=== PATIENT | male | born 1970 | race Caucasian/White ===

== ENCOUNTER 2017-05-02 12:54 | Emergency (ER) | payer MEDICARE, MEDICAID ==
[2017-05-02] MEDS ORDERED: NS 0.9% 1000 ML* 1,000 ML IV SCH (14:30)
[2017-05-02 14:50] LABS: Hematocrit 44 % (42-52); Mean Corpuscular HGB Conc 35 g/dl (31-36); Mean Corpuscular Hemoglobin 35 pg (27-31); Mean Corpuscular Volume 100 fL (80-94); Mean Platelet Volume 8 um3 (7.4-10.4); Red Blood Count 4.36 10^6/ul (4.0-5.4); Red Cell Distribution Width 14 % (10.5-15); White Blood Count 7.6 10^3/ul (3.5-10.8)
[2017-05-02 15:03] LABS: Albumin 3.8 g/dL (3.2-5.2); BUN/Creatinine Ratio 25.6 (8-20); C Reactive Protein 3.35 mg/L (< 5.00); Calcium 9.5 mg/dL (8.6-10.3); EGFR African American 124.2 (>60); EGFR Non-African American 96.6 (>60); Globulin 4.7 g/dL (2-4); Potassium 4.2 mmol/L (3.5-5.0); Total Bilirubin 0.7 mg/dL (0.2-1.0); Total Protein 8.5 g/dL (6.4-8.9)
[2017-05-02 15:48] LABS: Urine Bilirubin Negative (Negative); Urine Glucose Negative (Negative); Urine Nitrite Negative (Negative)
[2017-05-02] MEDS ORDERED: Al Hydrox/Mg Hydrox/Simet LIQ* 30 ML UDC PO ONE (15:59)
[2017-05-02] MEDS ORDERED: Lidocaine 2% VISCOUS* 15 ML UDC PO ONE (15:59)
[2017-05-02 16:28] LABS: Troponin I 0.04 ng/mL (<0.04)
--- NOTE | 2017-05-02 16:40 | RAD ---
Indication: Epigastric pain. Cardiovascular disease with congestive heart failure. Chronic obstructive pulmonary disease. Comparison: January 13, 2017 Technique: Upright AP 1620 hours Report: Elevated lung volumes and both diffuse mild prominence of the interstitial markings and patchy rarefaction of the mid to upper lung zone interstitial markings. Diffuse mild to moderate prominence of the interstitial markings with subtle peripheral thickened interlobular septa. Negative for pleural effusion or pneumothorax. RIGHT atrial and RIGHT ventricular level pacemaker leads extend from the RIGHT chest wall pacemaker control unit. A solitary lead extending from the LEFT chest wall extends to the level of the RIGHT ventricle. Prosthetic aortic valve. Cardiomegaly. Prominent mildly ill-defined central pulmonary vasculature. IMPRESSION: The constellation of findings is most consistent with pulmonary vascular congestion and interstitial edema.
--- NOTE | 2017-05-02 18:06 | ED ---
Charmaine Newton Edward, scribed for Jaime Hood MD on 05/02/17 at 1450 . Abdominal Pain/Male - HPI Summary HPI Summary: 46 y/o male presents to ED c/o ABD pain starting this morning at around 08:00, located in the mid ABD. The pt's caregiver also states he had a low temp of around 96. Associated sx: N/V (1x this morning). PMHx ABD hernia, CHF. SHx pacemaker, valve replacement surgery. PMHx down syndrome. Most of the information provided by the pt's caregiver. - History of Current Complaint Chief Complaint: EDAbdPain Stated Complaint: STOMACH PAIN Time Seen by Provider: 05/02/17 14:46 Hx Obtained From: Patient Onset/Duration: Lasting Hours, Still Present Pain Intensity: 0 Location: Other - Mid ABD Aggravating Factor(s): Nothing Alleviating Factor(s): Nothing Associated Signs And Symptoms: Positive: Nausea, Vomiting - Allergies/Home Medications Allergies/Adverse Reactions: Allergies Allergy/AdvReac Type Severity Reaction Status Date / Time Sulfa Drugs Allergy Unknown Unknown Verified 09/16/15 08:28 Reaction Details PMH/Surg Hx/FS Hx/Imm Hx Previously Healthy: No Endocrine/Hematology History: Reports: Hx Thyroid Disease Denies: Hx Diabetes Cardiovascular History: Reports: Hx Congenital Heart Disease, Hx Congestive Heart Failure, Hx Pacemaker/ICD, Hx Valvular Heart Disease, Other Cardiovascular Problems/Disorders Respiratory History: Reports: Hx Chronic Obstructive Pulmonary Disease (COPD) History: Denies: Hx Renal Disease Musculoskeletal History: Reports: Hx Back Problems, Hx Scoliosis Sensory History: Reports: Hx Contacts or Glasses Opthamlomology History: Reports: Hx Contacts or Glasses Neurological History: Reports: Hx Developmental Delay, 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 - Surgical History Surgery Procedure, Year, and Place: PACEMAKER, MITRAL VALVE REPLACEMENT Infectious Disease History: No Infectious Disease History: Denies: Traveled Outside the [place] in Last 30 Days - Family History Known Family History: Positive: Other - Per 2015 provider report - mom is alive and well - Social History Occupation: Disabled Lives: Assisted Living Alcohol Use: Rare Hx Substance Use: No Substance Use Type: Reports: None Hx Tobacco Use: No Smoking Status (MU): Never Smoked Tobacco Review of Systems Constitutional: Negative Eyes: Negative ENT: Negative Cardiovascular: Negative Respiratory: Negative Positive: Abdominal Pain, Vomiting, Nausea Genitourinary: Negative Musculoskeletal: Negative Skin: Negative Neurological: Negative Psychological: Normal All Other Systems Reviewed And Are Negative: Yes Physical Exam Triage Information Reviewed: Yes Vital Signs On Initial Exam: Initial Vitals Temp Pulse Resp BP Pulse Ox 98.1 F 73 18 127/72 97 05/02/17 13:00 05/02/17 13:00 05/02/17 13:00 05/02/17 13:00 05/02/17 13:00 Vital Signs Reviewed: Yes Appearance: Positive: Well-Appearing, No Pain Distress Skin: Positive: Warm, Skin Color Reflects Adequate Perfusion, Dry Head/Face: Positive: Normal Head/Face Inspection Eyes: Positive: EOMI, SHAKA ENT: Positive: Normal ENT inspection Neck: Positive: Supple, Nontender Respiratory/Lung Sounds: Positive: Clear to Auscultation, Breath Sounds Present Cardiovascular: Positive: RRR, Other - Heart click that goes along with mechanical valve. Abdomen Description: Positive: Nontender, Soft, Other: - Periumbilical swelling - 2.5 cm diameter, firm. The swelling was reduced during the exam. Bowel Sounds: Positive: Present Musculoskeletal: Positive: Strength/ROM Intact Neurological: Positive: Normal, Sensory/Motor Intact, Alert, Oriented to Person Place, Time Psychiatric: Positive: Affect/Mood Appropriate - Cathy Coma Scale Coma Scale Total: 15 Diagnostics - Vital Signs Vital Signs Temp Pulse Resp BP Pulse Ox 05/02/17 14:00 72 19 94 05/02/17 13:58 73 12 95 05/02/17 13:00 98.1 F 73 18 127/72 97 - Laboratory Lab Results: Lab Results 05/02/17 05/02/17 05/02/17 Range/Units 14:40 14:40 14:40 WBC 7.6 (3.5-10.8) 10^3/ul RBC 4.36 (4.0-5.4) 10^6/ul Hgb 15.0 (14.0-18.0) g/dl Hct 44 (42-52) % MCV 100 H (80-94) fL MCH 35 H (27-31) pg MCHC 35 (31-36) g/dl RDW 14 (10.5-15) % Plt Count 208 (150-450) 10^3/ul MPV 8 (7.4-10.4) um3 Neut % (Auto) 85.0 H (38-83) % Lymph % (Auto) 8.1 L (25-47) % Oliver % (Auto) 5.8 (1-9) % Eos % (Auto) 0.1 (0-6) % Baso % (Auto) 1.0 (0-2) % Absolute Neuts (auto) 6.5 (1.5-7.7) 10^3/ul Absolute Lymphs (auto) 0.6 L (1.0-4.8) 10^3/ul Absolute Monos (auto) 0.4 (0-0.8) 10^3/ul Absolute Eos (auto) 0 (0-0.6) 10^3/ul Absolute Basos (auto) 0.1 (0-0.2) 10^3/ul Absolute Nucleated RBC 0 10^3/ul Nucleated RBC % 0 INR (Anticoag Therapy) 2.31 H (0.89-1.11) APTT 37.3 H (26.0-36.3) seconds Sodium 133 (133-145) mmol/L Potassium 4.2 (3.5-5.0) mmol/L Chloride 99 L (101-111) mmol/L Carbon Dioxide 30 (22-32) mmol/L Anion Gap 4 (2-11) mmol/L BUN 22 (6-24) mg/dL Creatinine 0.86 (0.67-1.17) mg/dL Est GFR ( Amer) 124.2 (>60) Est GFR (Non-Af Amer) 96.6 (>60) BUN/Creatinine Ratio 25.6 H (8-20) Glucose 150 H (70-100) mg/dL Lactic Acid (0.5-2.0) mmol/L Calcium 9.5 (8.6-10.3) mg/dL Total Bilirubin 0.70 (0.2-1.0) mg/dL AST 33 (13-39) U/L ALT 25 (7-52) U/L Alkaline Phosphatase 133 H (34-104) U/L Troponin I 0.04 H* (<0.04) ng/mL C-Reactive Protein 3.35 (< 5.00) mg/L B-Natriuretic Peptide ( - 100) pg/mL Total Protein 8.5 (6.4-8.9) g/dL Albumin 3.8 (3.2-5.2) g/dL Globulin 4.7 H (2-4) g/dL Albumin/Globulin Ratio 0.8 L (1-3) Lipase 114 H (11.0-82.0) U/L Urine Color Urine Appearance Urine pH (5-9) Ur Specific [place] (1.010-1.030) Urine Protein (Negative) Urine Ketones (Negative) Urine Blood (Negative) Urine Nitrate (Negative) Urine Bilirubin (Negative) Urine Urobilinogen (Negative) Ur Leukocyte Esterase (Negative) Urine Glucose (Negative) Urine Ascorbic Acid (Negative) 05/02/17 05/02/17 05/02/17 Range/Units 14:40 14:40 15:29 WBC (3.5-10.8) 10^3/ul RBC (4.0-5.4) 10^6/ul Hgb (14.0-18.0) g/dl Hct (42-52) % MCV (80-94) fL MCH (27-31) pg MCHC (31-36) g/dl RDW (10.5-15) % Plt Count (150-450) 10^3/ul MPV (7.4-10.4) um3 Neut % (Auto) (38-83) % Lymph % (Auto) (25-47) % Oliver % (Auto) (1-9) % Eos % (Auto) (0-6) % Baso % (Auto) (0-2) % Absolute Neuts (auto) (1.5-7.7) 10^3/ul Absolute Lymphs (auto) (1.0-4.8) 10^3/ul Absolute Monos (auto) (0-0.8) 10^3/ul Absolute Eos (auto) (0-0.6) 10^3/ul Absolute Basos (auto) (0-0.2) 10^3/ul Absolute Nucleated RBC 10^3/ul Nucleated RBC % INR (Anticoag Therapy) (0.89-1.11) APTT (26.0-36.3) seconds Sodium (133-145) mmol/L Potassium (3.5-5.0) mmol/L Chloride (101-111) mmol/L Carbon Dioxide (22-32) mmol/L Anion Gap (2-11) mmol/L BUN (6-24) mg/dL Creatinine (0.67-1.17) mg/dL Est GFR ( Amer) (>60) Est GFR (Non-Af Amer) (>60) BUN/Creatinine Ratio (8-20) Glucose (70-100) mg/dL Lactic Acid 1.2 (0.5-2.0) mmol/L Calcium (8.6-10.3) mg/dL Total Bilirubin (0.2-1.0) mg/dL AST (13-39) U/L ALT (7-52) U/L Alkaline Phosphatase (34-104) U/L Troponin I (<0.04) ng/mL C-Reactive Protein (< 5.00) mg/L B-Natriuretic Peptide 48 ( - 100) pg/mL Total Protein (6.4-8.9) g/dL Albumin (3.2-5.2) g/dL Globulin (2-4) g/dL Albumin/Globulin Ratio (1-3) Lipase (11.0-82.0) U/L Urine Color Yellow Urine Appearance Clear Urine pH 6.0 (5-9) Ur Specific [place] 1.015 (1.010-1.030) Urine Protein Negative (Negative) Urine Ketones Negative (Negative) Urine Blood Negative (Negative) Urine Nitrate Negative (Negative) Urine Bilirubin Negative (Negative) Urine Urobilinogen Negative (Negative) Ur Leukocyte Esterase Negative (Negative) Urine Glucose Negative (Negative) Urine Ascorbic Acid * H (Negative) 05/02/17 Range/Units 17:23 WBC (3.5-10.8) 10^3/ul RBC (4.0-5.4) 10^6/ul Hgb (14.0-18.0) g/dl Hct (42-52) % MCV (80-94) fL MCH (27-31) pg MCHC (31-36) g/dl RDW (10.5-15) % Plt Count (150-450) 10^3/ul MPV (7.4-10.4) um3 Neut % (Auto) (38-83) % Lymph % (Auto) (25-47) % Oliver % (Auto) (1-9) % Eos % (Auto) (0-6) % Baso % (Auto) (0-2) % Absolute Neuts (auto) (1.5-7.7) 10^3/ul Absolute Lymphs (auto) (1.0-4.8) 10^3/ul Absolute Monos (auto) (0-0.8) 10^3/ul Absolute Eos (auto) (0-0.6) 10^3/ul Absolute Basos (auto) (0-0.2) 10^3/ul Absolute Nucleated RBC 10^3/ul Nucleated RBC % INR (Anticoag Therapy) (0.89-1.11) APTT (26.0-36.3) seconds Sodium (133-145) mmol/L Potassium (3.5-5.0) mmol/L Chloride (101-111) mmol/L Carbon Dioxide (22-32) mmol/L Anion Gap (2-11) mmol/L BUN (6-24) mg/dL Creatinine (0.67-1.17) mg/dL Est GFR ( Amer) (>60) Est GFR (Non-Af Amer) (>60) BUN/Creatinine Ratio (8-20) Glucose (70-100) mg/dL Lactic Acid (0.5-2.0) mmol/L Calcium (8.6-10.3) mg/dL Total Bilirubin (0.2-1.0) mg/dL AST (13-39) U/L ALT (7-52) U/L Alkaline Phosphatase (34-104) U/L Troponin I 0.03 (<0.04) ng/mL C-Reactive Protein (< 5.00) mg/L B-Natriuretic Peptide ( - 100) pg/mL Total Protein (6.4-8.9) g/dL Albumin (3.2-5.2) g/dL Globulin (2-4) g/dL Albumin/Globulin Ratio (1-3) Lipase (11.0-82.0) U/L Urine Color Urine Appearance Urine pH (5-9) Ur Specific [place] (1.010-1.030) Urine Protein (Negative) Urine Ketones (Negative) Urine Blood (Negative) Urine Nitrate (Negative) Urine Bilirubin (Negative) Urine Urobilinogen (Negative) Ur Leukocyte Esterase (Negative) Urine Glucose (Negative) Urine Ascorbic Acid (Negative) Result Diagrams: 05/02/17 14:40 05/02/17 14:40 Lab Statement: Any lab studies that have been ordered have been reviewed, and results considered in the medical decision making process. - Radiology CXR Xray Interpretation: Positive (See Comments) - The constellation of findings is most consistent with pulmonary vascular congestion and interstitial edema. ED PHYSICIAN AGREEABLE Radiology Interpretation Completed By: Radiologist - EKG 1 EKG Interpretation: 16:23 - PACED RHYTHM @ 70 BPM Re-Evaluation - Re-Evaluation 1 Re-Evaluation Time: 16:58 2 Re-Evaluation Time: 17:08 Abdominal Pain Fem Course/Dx - Course Course Of Treatment: ON EXAM, I REDUCED THE PATIENT'S UMBILICAL HERNIA. PATIENT 'S ABDOMINAL PAIN WENT AWAY AND HE DRANK WATER WITHOUT ANY PROBLEMS. PATIENT HAD C/O CHEST BURNING. EKG PACED AND TROPONIN 0.04. HOSPITALIST SAW PATIENT IN ED, REPEAT TROPONIN 0.03. PATIENT DISCHARGED HOME; F/U PMD; RETURN IF WORSE. - Diagnoses Provider Diagnoses: Umbilical hernia, Abdominal pain, Chest pain Discharge - Discharge Plan Condition: Stable Disposition: HOME Patient Education Materials: Umbilical Hernia (ED), Abdominal Pain (ED), Chest Pain (ED) Referrals: Delisa Persaud MD [Primary Care Provider] - Additional Instructions: FOLLOW UP WITH YOUR DOCTOR. RETURN TO THE EMERGENCY DEPARTMENT FOR ANY WORSENING OF YOUR CONDITION OR QUESTIONS OR CONCERNS. The documentation as recorded by the Charmaine espinoza Edward accurately reflects the service I personally performed and the decisions made by me, Jaime Hood MD.
[2017-05-02 18:21] VITALS: BP 133/86
--- NOTE | 2017-05-03 00:45 | CONS ---
CC: [facility]; Dr. Delisa Persaud * EMERGENCY DEPARTMENT CONSULT: DATE OF CONSULT: 05/02/17 PRIMARY CARE PROVIDER: Dr. Delisa Persaud. EMERGENCY DEPARTMENT PROVIDER AND REQUESTING PROVIDER: Dr. Jaime Hood. CONSULTING PROVIDER: DIXON Young CHIEF COMPLAINT: Abdominal pain and chest pain. HISTORY OF PRESENT ILLNESS: This is a very pleasant 46-year-old gentleman with Down syndrome and irys-ma-[id number] developmental delay as a result of that as well as congenital heart disease and chronic systolic heart failure with prior CVA and mechanical mitral valve in place, who presented to the emergency department with complaints of abdominal pain. A small umbilical hernia was identified by the emergency department provider, which was successfully reduced and his abdominal pain resolved. The patient stated, however, that with reduction of his umbilical hernia, he developed chest pain. He was not in any sort of distress. Did not complain of associated shortness of breath, recent cough, weight gain, or palpitations. He has known history of coronary artery disease. Initial labs in the emergency department demonstrated mildly elevated troponin of 0.04. EKG was difficult to interpret as he is 100% paced. The patient denies any recent illness. No recent cough, shortness of breath, unexplained weight gain, lower extremity edema, other abdominal pain, nausea, or vomiting. PAST MEDICAL HISTORY: 1. Down syndrome with gwls-ck-qkmkjrhc developmental delay. 2. Status post mitral valve replacement with mechanical valve in place and chronic anticoagulation with Coumadin. 3. Pulmonary hypertension. 4. Hypothyroidism. 5. Chronic systolic heart failure with last EF measured at 40% to 45%. 6. History of prior CVA without significant residual deficit. PAST SURGICAL HISTORY: 1. Mitral valve replacement - mechanical. 2. Biventricular pacer placement. 3. Pulmonary artery banding. 4. Myringotomy. 5. Right heel cord lengthening procedure x2. MEDICATIONS: Home medications not verified in the emergency department. SOCIAL HISTORY: The patient is a resident at the [facility]. No significant smoking history or regular alcohol consumption. REVIEW OF SYSTEMS: As noted above in HPI and otherwise negative. PHYSICAL EXAM: Initial vital signs, temperature 98.1 degrees Fahrenheit, pulse 73 beats per minute, respiratory rate 18, oxygen saturation 97% on room air, and blood pressure 127/72 mmHg. General: This is a very pleasant 46-year-old gentleman with whrv-pj-pdzxkqze developmental delay, but clear speech and accompanied by staff from the [facility], who appears to be in no acute distress. HEENT: Head is normocephalic, atraumatic. Mucous membranes are pink and moist. Tongue is slightly large, but this appears to be congenital. Cardiovascular: Heart has regular rate and rhythm. There is a definitive click appreciated, likely attributable to his mechanical valve. Respiratory: Lungs are clear to auscultation without wheezes , crackles, or rhonchi. No increased work of breathing. Abdomen: Abdomen is soft, mild tenderness to palpation at the area of umbilical hernia defect. The defect is relatively small and soft and it is postreduction. Palpation over the area of defect reproduces his chest pain. Extremities: There is some chronic hyperpigmentation of both lower extremities, but no edema noted. Skin: No concerning rashes or lesions. Psych: The patient is alert and appropriately oriented. DIAGNOSTIC STUDIES/LAB DATA: CBC showed white blood cell count of 7600, hemoglobin of 15 g/dL, platelet count of 208,000. INR of 2.3. Comprehensive metabolic panel is unremarkable with sodium of 133, potassium 4.2 , BUN 22, creatinine 0.86. Random glucose of 150, lactic acid 1.2. Total bilirubin 0.07 with normal transaminases. Initial troponin 0.04, repeat troponin 0.03. Lipase mildly elevated at 114. Urinalysis is completely normal. Imaging: Chest x-ray demonstrates cardiomegaly and a biventricular pacer in place with some mild increase in interstitial markings, perhaps outreach representative of pulmonary venous congestion. EKG demonstrates 100% paced rhythm. ASSESSMENT AND PLAN: This is a 46-year-old gentleman with tnlt-[id number] developmental delay secondary to Down syndrome as well as congenital heart defects resulting in pulmonary hypertension, chronic systolic heart failure, and is status post prior mitral valve replacement, who presents to the emergency department with initial complaints of abdominal pain with reducible umbilical hernia, which induced complaints of chest pain postreduction. Hospitalist group was asked to evaluate the patient due to mildly elevated troponin and his complaints of chest pain. 1. Chest pain - the patient's pain is reproducible with palpation of his abdomen and also has some mild tenderness of the chest wall over the area that he is indicating is painful. His story of his pain starting after reduction of the umbilical hernia without any other signs of cardiac distress seems to be unlikely for cardiac etiology. He has congenital heart disease, no known coronary disease. Initial troponin was elevated to 0.04. Review of prior records indicates that he has had elevation to 0.04 on multiple occasions dating back to 2014. Repeat troponin is down to 0.03. EKG is unable to be interpreted for ischemic changes due to his pacer dependence. Due to his stable troponins and low likelihood of pain being cardiac based on the exam and history, there is no indication to admit to the hospital for these complaints. His chest pain is likely gastrointestinal related and not reflecting acute coronary syndrome. 2. Abnormal chest x-ray - chest x-ray was interpreted as showing pulmonary venous congestion - the patient has no abnormal lung findings on exam, does not appear to be in any respiratory distress and is not hypoxic. Perhaps, he has some pulmonary fibrosis or other interstitial disease that has caused some chronic changes on chest x-ray as this does appear similar to prior. 3. Chronic systolic heart failure with last ejection fraction of 40% to 45% based on echo from 2015, but there is no evidence of acute exacerbation. 4. Umbilical hernia - without strangulation postreduction this can be followed up as an outpatient on an as needed basis. 5. Hypothyroidism. 6. History of cerebrovascular accident. 7. Xqhg-yo-[id number] developmental delay secondary to Down syndrome. 8. Mechanical mitral valve, anticoagulated on Coumadin with therapeutic INR. 9. Code status is full. DISPOSITION: Recommend discharge to emergency department provider with primary care followup. The patient, his caregiver from the [facility], and emergency department provider are in agreement with this plan. DIXON YOUNG [id number]/CPS #: [id number] MARA
== END 2017-05-02 18:29 | disposition home or self-care (01) ==
LOC: ED 12:54
DX: K42.9 Umbilical hernia without obstruction or gangrene (principal); R10.9 Unspecified abdominal pain; R07.9 Chest pain, unspecified; Z95.0 Presence of cardiac pacemaker; R62.50 Unspecified lack of expected normal physiological development in childhood; I34.1 Nonrheumatic mitral (valve) prolapse
CPT/HCPCS: 36415; 71010; 80053; 81003; 83605; 83690; 83880; 84484; 85025; 85610; 85730; 86140; 93005; 99282; A9270-GY

== ENCOUNTER 2019-03-04 14:57 | Emergency (ER) | payer MEDICARE, MEDICAID ==
[2019-03-04 15:13] VITALS: BP 122/66
--- NOTE | 2019-03-04 15:46 | UC ---
Hand/Wrist HPI - HPI Summary HPI Summary: 48-year-old male comes in with a chief complaint of right wrist and hand pain. Started in the last couple of days. Patient does have some contractures that are chronic and that wrist and hand. No known trauma. Patient lives in a longterm and they noticed he wasn't using it is much. Patient does use a walker. - History Of Current Complaint Chief Complaint: UCUpperExtremity Stated Complaint: RT WRIST PAIN Time Seen by Provider: 03/04/19 15:18 Pain Intensity: 2 - Allergies/Home Medications Allergies/Adverse Reactions: Allergies Allergy/AdvReac Type Severity Reaction Status Date / Time Sulfa (Sulfonamide Allergy Unknown Verified 03/04/19 15:14 Antibiotics) Reaction Details Home Medications: Home Medications Acetaminophen 650 mg PO Q6HR PRN 03/04/19 [History Confirmed 03/04/19] Amoxicillin PO (*) [Amoxicillin 500 MG CAP*] 2,000 mg PO ONCE 03/04/19 [History Confirmed 03/04/19] Bacitracin OINTMENT* 500 units TOPICAL DAILY 03/04/19 [History Confirmed ] Carbamide Peroxide 6.5% OTIC* [DEBROX 6.5% Otic*] 1 drop BOTH EARS BID 03/04/19 [History Confirmed 03/04/19] Clindamycin 1% TOPICAL(NF) [Cleocin-T 1% TOPICAL(NF)] 1 applic TOPICAL DAILY [History Confirmed 03/04/19] Digoxin [Digitek] 250 mcg PO DAILY 03/04/19 [History Confirmed 03/04/19] Hydrocortisone 0.5% CM(NF) [Hydrocortisone 0.5% CREAM(NF)] 2 applic TOPICAL BID 03/04/19 [History Confirmed 03/04/19] Ketoconazole 2 % CREAM (NF) [Nizoral 2% CREAM (NF)] 1 applic TOPICAL DAILY 03/04 [History Confirmed 03/04/19] Miconazole Nitrate [Micro-Guard] 85 gm TOPICAL DAILY 03/04/19 [History Confirmed 03/04/19] PMH/Surg Hx/FS Hx/Imm Hx Previously Healthy: Yes Endocrine History: Hypothyroidism Cardiovascular History: Other - ATRIAL FLUTTER - Surgical History Surgical History: Yes Surgery Procedure, Year, and Place: PACEMAKER, MITRAL VALVE REPLACEMENT - Family History Known Family History: Positive: Other - Per 2014 provider report - mom is alive and well - Social History Alcohol Use: None Substance Use Type: None Smoking Status (MU): Never Smoked Tobacco - Immunization History Most Recent Influenza Vaccination: Jun 2015 Most Recent Tetanus Shot: 06/2008 Most Recent Pneumonia Vaccination: 02/2004 Review of Systems All Other Systems Reviewed And Are Negative: Yes Constitutional: Positive: Negative Skin: Positive: Negative Eyes: Positive: Negative ENT: Positive: Negative Respiratory: Positive: Negative Cardiovascular: Positive: Negative Gastrointestinal: Positive: Negative Motor: Positive: Other - SEE HPI Neurovascular: Positive: Negative Musculoskeletal: Positive: Other: - SEE HPI Neurological: Positive: Negative Psychological: Positive: Negative Is Patient Immunocompromised?: No Physical Exam Triage Information Reviewed: Yes Appearance: Well-Appearing, No Pain Distress, Well-Nourished Vital Signs: Initial Vital Signs Temp 97.6 F 03/04/19 15:05 Pulse 82 03/04/19 15:05 Resp 16 03/04/19 15:05 BP 122/66 03/04/19 15:05 Pulse Ox 97 03/04/19 15:05 Vital Signs Reviewed: Yes Eyes: Positive: Conjunctiva Clear Neck: Positive: Supple Respiratory: Positive: No respiratory distress Musculoskeletal: Positive: Other: - Per the caregiver patient has some chronic contractures of the right hand and so has less than full range of motion chronically. Today his wrist appears swollen and tender to palpation. Normal capillary refill normal radial pulses no sensation deficit. He keeps his hand clenched in a fist although he is able to extend his index finger. The caregiver was not sure if this is his normal chronic contracture. Neurological: Positive: Alert Psychological: Positive: Other: - NORMAL BASELINE BEHAVIOR PER CAREGIVER Skin Exam: Normal Hand/Wrist Course/Dx - Course Course Of Treatment: Patient Name: JAIME HEATH Medical Record#: [id number] Ordering Physician: Jaime Hood MD Acct.#: [id number] : 1970 Age: 48 Sex: M Location: [facility] Exam Date: 03/04/191538 ADM Status: REG ER Order Information: WRIST RIGHT 3+ VWS Accession Number: [id number] CPT: 26646 INDICATION: RIGHT wrist pain volar aspect. No reported injury. COMPARISON: None. TECHNIQUE: AP, crosstable lateral, and oblique views RIGHT wrist. REPORT AND IMPRESSION: #. Soft tissue swelling throughout greatest on the volar aspect. No conspicuous foreign body or subcutaneous emphysema. #. 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 Severe joint space narrowing at the radiocarpal joint. #. Negative for fracture. <Electronically signed by Barrera Clark MD in OV> 03/04/19 9900 I discussed the x-rays with the patient and his caregiver. No fracture seen. Patient does have a lot of degenerative changes of the wrist which it's unclear here by history does help long this been going on. With the worsening of his wrist with the swelling and pain patient needs further evaluation. Patient was placed in a cock-up splint by nursing [facility] clinic today and he is neurovascular intact after placement of the cock-up splint. Patient will follow -up with orthopedics. - Differential Dx/Diagnosis Provider Diagnosis: Right wrist pain, Pain and swelling of right wrist Discharge - Sign-Out/Discharge Documenting (check all that apply): Patient Departure All imaging exams completed and their final reports reviewed: Yes - Discharge Plan Condition: Stable Disposition: HOME Patient Education Materials: Wrist Sprain (ED) Referrals: Delisa Persaud MD [Primary Care Provider] - Charlie Fried MD [Medical Doctor] - Additional Instructions: FOLLOW UP WITH ORTHOPEDICS. GET RECHECKED SOONER IF YOUR CONDITION WORSENS OR ANY QUESTIONS OR CONCERNS. - Billing Disposition and Condition Condition: STABLE Disposition: Home
== END 2019-03-04 17:12 | disposition home or self-care (01) ==
LOC: UCEAST 14:57
DX: M25.531 Pain in right wrist (principal); R22.31 Localized swelling, mass and lump, right upper limb; E03.9 Hypothyroidism, unspecified; I48.92 Unspecified atrial flutter; Z88.2 Allergy status to sulfonamides
CPT/HCPCS: 99212; G0463

== ENCOUNTER 2019-05-08 11:29 | Emergency (ER) | payer MEDICARE, MEDICAID ==
--- OUTSIDE RECORDS SUMMARY | 2019-05-08 11:42 | XMS REPORT | Continuity of Care Document ---
:1970 External Reference #:[id number] Author Name Randal Garrido MD (transmitted by agent of provider Ralph Ariza) Address [address] [place] [address] Care Team Providers Name Role Phone Delisa Persaud MD - Internal Care Team Information Product Finisher Medicine Problems Description No Information Available Social History Type Date Description Comments Sex Unknown ETOH Use Denies alcohol use Tobacco Use Start: Unknown Patient has never smoked Smoking Status Reviewed: 04/18/19 Patient has never smoked Exercise Type/Frequency Exercises sporadically Allergies, Adverse Reactions, Alerts Description No Known Drug Allergies Medications Active Medications SIG Qnty Indications Ordering Date Provider Dorsiflexion Ankle 1units Jacobo F 06/14/2017 Splint MD Fritz Misc Hibiclens use as directed Unknown 4% Liquid Mineral Oil Unknown Oil Multi-Day Vitamins 1 by mouth every Unknown day Tablets [place] Allergy 1 by mouth every Unknown 180mg day Tablets Ventolin HFA Cardina, 108(90Base) MD Sekou mcg/Act Aerosol Ketoconazole Cardina, 2% Cream MD Sekou Metronidazole Unknown 0.75% Cream Furosemide Unknown 40mg Tablets Clindamycin Phosphate Dayron-White, 1% Kylee, CLEANER TOUCH UP WORKER Gel Warfarin Sodium Cardina, 2mg MD Sekou Tablets Levothyroxine Sodium Dayron-White, Kylee, CLEANER TOUCH UP WORKER 100mcg Tablets Colcrys Dayron-White, 0.6mg Tablets Kylee, CLEANER TOUCH UP WORKER Levothyroxine Sodium Dayron-White, KyleeLISHA 88mcg Tablets Doxycycline Hyclate Cardina, 100mg MD Sekou Tablets Digoxin Unknown 250mcg Tablets Allopurinol Cardina, 300mg Tablets MD Sekou Immunizations Description No Information Available Vital Signs Date Vital Result Comment 04/18/2019 2:43pm Height 60 inches 5'0" Weight 155.00 lb Heart Rate 92 /min BP Systolic 122 mmHg BP Diastolic 76 mmHg Respiratory Rate 14 /min Pain Level 0 BMI (Body Mass Index) 30.3 kg/m2 03/08/2019 10:47am Height 60 inches 5'0" Weight 155.00 lb Heart Rate 72 /min BP Systolic 120 mmHg BP Diastolic 74 mmHg Respiratory Rate 18 /min Pain Level 3 BMI (Body Mass Index) 30.3 kg/m2 Results Description No Information Available Procedures Date Code Description Status 03/08/2019 69041 Inject/Drain Joint/Bursa Intermediate W/O US Completed Medical Devices Description No Information Available Encounters Description No Information Available Assessments Date Code Description Provider 04/18/2019 M19.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, right wrist Randal Garrido MD 04/18/2019 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
--- OUTSIDE RECORDS SUMMARY | 2019-05-08 11:42 | XMS REPORT | Continuity of Care Document ---
:1970 External Reference #:[id number] Author Name Loli Hunter PA-C Address [address] [place] [address] Care Team Providers Name Role Phone Sekou Evans M.D. - Internal Care Team Information Instructor Of Education [phone] Medicine Problems Active Problems Provider Date Essential hypertension Earl Castelan MD Onset: 07/30/2006 Social History Type Date Description Comments Sex Unknown Tobacco Use Start: Unknown Never Smoked Cigarettes Tobacco Use Start: Unknown has never smoked cigars Tobacco Use Start: Unknown has never smoked a pipe Smokeless Tobacco has never used smokeless tobacco ETOH Use does not drink alcohol Tobacco Use Start: Unknown Patient has never smoked Allergies, Adverse Reactions, Alerts Active Allergies Reaction Severity Comments Date sulfa 09/21/2014 Inactive Allergies NKDA 05/06/2005 Medications Active Medications SIG Qnty Indications Ordering Date Provider Clotrimazole/Betameth apply to dry areas 15gm Earl Walsh 04/15/2017 asone Dipropionate and lateral canals MD Annelise of both ears 1-0.05% Cream twice a day for 2 weeks Debrox 4 drops both ears 1units H61.23 Elian Rodriguez 07/22/2011 6.5% Solution for 1 week prior Juan Isaac to visit. Doxycycline once daily Unknown 100mg Allopurinol 1 by mouth every Cardina, Sekou 300mg day M.D. Tablets Multivitamins 1 by mouth every Cardina, Sekou Capsules day M.D. Mineral Oil please administer Cardina, Sekou Oil 3 drops mineral M.D. oil bilateral ears at bed time [place] Allergy 1 by mouth every Cardina, Sekou 180mg day M.D. Tablets Levothyroxine Sodium qod Dayron Edmond F.N.P., Kylee 88mcg Tablets Warfarin Sodium 2 mg qod and 4 MG Cardina, Sekou 2mg qod M.D. Tablets Digoxin Cardina, Sekou 250mcg Tablets M.D. Furosemide Dauria N.P., 40mg Tablets Karen Levothyroxine Sodium daily Dayron White F.N.P., Kylee 100mcg Tablets Immunizations Description No Information Available Vital Signs Date Vital Result Comment 12/06/2018 3:54pm Weight 155.00 lb Weight 70.308 kg Height 60.5 inches 5'0.50" Height in cm's 153.7 cm BMI (Body Mass Index) 29.8 kg/m2 08/08/2018 11:23am Weight 155.00 lb Weight 70.308 kg Height 60.5 inches 5'0.50" Height in cm's 153.7 cm BMI (Body Mass Index) 29.8 kg/m2 Results Description No Information Available Procedures Date Code Description Status 04/10/2019 17165 Tympanometry Completed 04/10/2019 69902 Comprehensive Audiogram Completed 04/10/2019 92250 Removal Wax Impaction Completed 12/06/2018 90240 Removal Wax Impaction Completed Medical Devices Description No Information Available Encounters Description No Information Available Assessments Date Code Description Provider 04/10/2019 H61.23 Impacted cerumen, bilateral Loli Hunter PA-C 04/10/2019 H90.3 Sensorineural hearing loss, bilateral Loli Hunter PA-C 12/06/2018 H61.23 Impacted cerumen, bilateral Loli Hunter PA-C Plan of Treatment Future Appointment(s):08/07/2019 10:45 am - Loli Hunter PA-C at [place],After - DAIN MarxCH61.23 Impacted cerumen, bilateralComments: All cerumen was removed from the external canals under the binocular microscope. This was well tolerated. They will return in 4 months for routine ear cleaning.H90.3 Sensorineural hearing loss, bilateralComments:There is bilateral mild to moderate high frequency sensorineural hearing loss that is stable compared to 2017 audiogram. Speech discrimantion scores are excellent at 100% bilaterally. SRT is at 15 AU. Tympanometry shows normal compliance of the tympanic membranes. Functional Status Description No Information Available Mental Status Description No Information Available Referrals Description No Information Available
--- NOTE | 2019-05-08 12:58 | ED ---
GI/ HPI - HPI Summary HPI Summary: 48 year old M presenting to [facility] accompanied by female caregiver complains of swelling of the scrotum since Wednesday05/03/19. Patient denies pain currently. The patient rates the pain 6/10 currently in severity. Symptoms aggravated by nothing. Symptoms alleviated by nothing. - History of Current Complaint Chief Complaint: EDUrogenitalProblems Time Seen by Provider: 05/08/19 12:52 Stated Complaint: ABSCESS PER PT Hx Obtained From: Family/Manager [employer] Onset/Duration: Started Days Ago - Wednesday05/03/19, Still Present Timing: Constant Severity: Moderate - 6/10 per triage Current Severity: None Pain Intensity: 0 Additional Locations for Males: Scrotum Aggravating Factor(s): Nothing Alleviating Factor(s): Nothing - Additional Pertinent History Primary Care Physician: JANEL - Allergy/Home Medications Allergies/Adverse Reactions: Allergies Allergy/AdvReac Type Severity Reaction Status Date / Time Sulfa (Sulfonamide Allergy Unknown Verified 05/08/19 11:36 Antibiotics) Reaction Details Home Medications: Home Medications Chlorhexidine Gluconate [Hibiclens] 4 % TOPICAL QPM 05/08/19 [History Confirmed 05/08/19] Digoxin TAB* [Lanoxin TAB*] 0.25 mg PO QAM 05/08/19 [History Confirmed 05/08/19] Hydrocortisone 2.5% CREAM(NF) 1 applic TOPICAL BID PRN 05/08/19 [History Confirmed 05/08/19] Ipratropium/Albuterol Sulfate [Iprat-Albut 0.5-3(2.5) mg/3 ml] 3 ml INH Q4HR PRN 05/08/19 [History Confirmed 05/08/19] Levothyroxine TAB* [Synthroid TAB*] 88 mcg PO SUTUTHSA 05/08/19 [History Confirmed 05/08/19] Levothyroxine TAB* [Synthroid TAB*] 100 mcg PO MOWEFR 05/08/19 [History Confirmed 05/08/19] Miconazole Nitrate [Zeasorb AF] 71 gm TOPICAL DAILY 05/08/19 [History Confirmed 05/08/19] Mineral Oil STERILE* [Sterile Mineral Oil*] 4 drop BOTH EARS .THREE TIMES A WEEK PRN 05/08/19 [History Confirmed 05/08/19] Multivitamins/Minerals TAB* [Theragran/minerals TAB*] 1 tab PO QAM 05/08/19 [ History Confirmed 05/08/19] PMH/Surg Hx/FS Hx/Imm Hx Endocrine/Hematology History: Reports: Hx Thyroid Disease Denies: Hx Diabetes Cardiovascular History: Reports: Hx Congenital Heart Disease, Hx Congestive Heart Failure, Hx Pacemaker/ICD, Hx Valvular Heart Disease, Other Cardiovascular Problems/Disorders Respiratory History: Reports: Hx Chronic Obstructive Pulmonary Disease (COPD) History: Denies: Hx Renal Disease Musculoskeletal History: Reports: Hx Back Problems, Hx Scoliosis Sensory History: Reports: Hx Contacts or Glasses Opthamlomology History: Reports: Hx Contacts or Glasses Neurological History: Reports: Hx Developmental Delay, 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 - Surgical History Surgery Procedure, Year, and Place: PACEMAKER, MITRAL VALVE REPLACEMENT Infectious Disease History: No Infectious Disease History: Denies: Traveled Outside the [place] in Last 30 Days - Family History Known Family History: Positive: Other - Per 2014 provider report - mom is alive and well - Social History Alcohol Use: None Hx Substance Use: No Substance Use Type: Reports: None Hx Tobacco Use: No Smoking Status (MU): Never Smoked Tobacco Review of Systems Negative: Fever Genitourinary: Negative - scrotum pain Positive: other - swelling of the scrotum All Other Systems Reviewed And Are Negative: Yes Physical Exam - Summary Physical Exam Summary: Appearance: The patient is well-nourished in no acute distress and in no acute pain. Skin: The skin is warm and dry, and skin color reflects adequate perfusion. HEENT: The head is normocephalic and atraumatic. The pupils are equal and reactive. The conjunctivae are clear and without drainage. Nares are patent and without drainage. Mouth reveals moist mucous membranes, and the throat is without erythema and exudate. The external ears are intact. The ear canals are patent and without drainage. The tympanic membranes are intact. Neck: The neck is supple with full range of motion and non-tender. There are no carotid bruits. There is no neck vein distension. Respiratory: Chest is non-tender. Lungs are clear to auscultation and breath sounds are symmetrical and equal. Cardiovascular: Heart is regular rate and rhythm. There is no murmur or rub auscultated. There is no peripheral edema and pulses are symmetrical and equal. Abdomen: The abdomen is soft and non-tender. There are normal bowel sounds heard in all four quadrants and there is no organomegaly palpated. Genital exam: The scrotum is swollen, mildly erythematous, mildly tender, and weeping a little Musculoskeletal: There is no back tenderness noted. Extremities are non-tender with full range of motion. There is good capillary refill. There is no peripheral edema or calf tenderness elicited. Neurological: Patient is alert and oriented to person, place and time. The patient has symmetrical motor strength in all four extremities. Cranial nerves are grossly intact. Deep tendon reflexes are symmetrical and equal in all four extremities. Psychiatric: The patient has an appropriate affect and does not exhibit any anxiety or depression. Triage Information Reviewed: Yes Vital Signs On Initial Exam: Initial Vitals Temp Pulse Resp BP Pulse Ox 97.7 F 84 18 120/79 95 05/08/19 11:31 05/08/19 11:31 05/08/19 11:31 05/08/19 11:31 05/08/19 11:31 Vital Signs Reviewed: Yes Diagnostics - Vital Signs Vital Signs Temp Pulse Resp BP Pulse Ox 05/08/19 11:31 97.7 F 84 18 120/79 95 - Laboratory Result Diagrams: 05/08/19 16:03 05/08/19 16:03 Lab Statement: Any lab studies that have been ordered have been reviewed, and results considered in the medical decision making process. - Radiology CXR Radiology Interpretation Completed By: ED Physician Summary of Radiographic Findings: Mild pulmonary edema. Pending official report - Ultrasound Testicular Ultrasound Interpretation Completed By: Radiologist Summary of Ultrasound Findings: 1. MARKED SCROTAL SOFT TISSUE SWELLING SUGGESTED THE POSSIBILITY OF CELLULITIS. RECOMMEND CLINICAL CORRELATION. 2. NO EVIDENCE FOR EPIDIDYMITIS OR TESTICULAR TORSION. ED physician has reviewed this report. Re-Evaluation - Re-Evaluation First Eval Re-Evaluation Time: 18:08 Comment: patient and caregiver updated on plan of care. discussed dispo. patient and caregiver are agreeable to discharge GIGU Course/Dx - Course Course Of Treatment: Mr. Castellon presented to the emergency department complaining of scrotal swelling. He specifically denied any pain. He has known right heart failure. Ultrasound was obtained of the scrotum and showed only edema. Labs are unremarkable including a BNP. His chest x-ray did look like he had a little bit of pulmonary edema also. I'm going to start him on a small dose of Lasix and encourage him to follow-up with his PCP. - Diagnoses Provider Diagnoses: Right-sided heart failure - Physician Notifications Discussed Care Of Patient With: Markos Lombardo Time Discussed With Above Provider: 15:02 Instructed by Provider To: Other - Dr. Lombardo, hospitalist, recommends ordering CXR and if it is negative, then discharging patient with follow up from primary care provider Discharge ED - Sign-Out/Discharge Documenting (check all that apply): Patient Departure - Discharge Patient Received Moderate/Deep Sedation with Procedure: No - Discharge Plan Condition: Stable Disposition: HOME Prescriptions: Furosemide TAB* [Lasix TAB*] 20 mg PO DAILY #10 tab Patient Education Materials: Heart Failure (ED) Referrals: Delisa Persaud MD [Primary Care Provider] - 1 Week Additional Instructions: Follow up with your primary care provider this week. Return to the Emergency Department for new or worsening symptoms. - Billing Disposition and Condition Condition: STABLE Disposition: Home - Attestation Statements Document Initiated by Angibe: Yes Documenting Scribe: Kailey Parmar Provider For Whom Jose G is Documenting (Include Credential): Jones Potter MD Scribe Attestation: I, Kailey Parmar, scribed for Jones Potter MD on 05/08/19 at 2051. Scribe Documentation Reviewed: Yes Provider Attestation: The documentation as recorded by the scribe, Kailey Parmar accurately reflects the service I personally performed and the decisions made by me, Jones Potter MD Status of Scribe Document: Viewed
[2019-05-08 16:17] LABS: Hematocrit 42 % (42-52); Hemoglobin 13.9 g/dL (14.0-18.0); Mean Corpuscular HGB Conc 34 g/dL (31-36); Mean Corpuscular Hemoglobin 34 pg (27-31); Mean Corpuscular Volume 102 fL (80-94); Mean Platelet Volume 7.8 fL (7.4-10.4); Platelet Count 190 10^3/uL (150-450); Red Blood Count 4.08 10^6 /uL (4.18-5.48); Red Cell Distribution Width 15 % (10-15); White Blood Count 5.8 10^3/uL (3.5-10.8)
[2019-05-08 16:40] LABS: ABS Basophils 0.2 10^3/ul (0-0.2); ABS Eosinophils 0.1 10^3/ul (0-0.6); ABS Monocytes 0.7 10^3/ul (0-0.8); ABS Neutrophils 3.8 10^3/ul (1.5-7.7); Eosinophil % 2.4 %; Lymphocyte % 16.8 %; Nucleated Red Blood Cells % 0.1
[2019-05-08 16:53] LABS: Albumin 3.4 g/dL (3.2-5.2); BUN/Creatinine Ratio 24.4 (8-20); C Reactive Protein 14.73 mg/L (<8.01); Calcium 8.5 mg/dL (8.6-10.3); EGFR African American 115.8 (>60); EGFR Non-African American 95.7 (>60); Globulin 3.5 g/dL (2-4); Potassium 4.5 mmol/L (3.5-5.0); Total Bilirubin 0.6 mg/dL (0.2-1.0); Total Protein 6.9 g/dL (6.4-8.9)
[2019-05-08 18:17] VITALS: BP 93/62
== END 2019-05-08 18:36 | disposition home or self-care (01) ==
LOC: ED 11:29
DX: I50.9 Heart failure, unspecified (principal); E07.9 Disorder of thyroid, unspecified; J44.9 Chronic obstructive pulmonary disease, unspecified; Z86.73 Personal history of transient ischemic attack (TIA), and cerebral infarction without residual deficits; Z95.0 Presence of cardiac pacemaker; Z95.2 Presence of prosthetic heart valve; Z88.2 Allergy status to sulfonamides; Z79.899 Other long term (current) drug therapy
CPT/HCPCS: 36415; 71046; 76870; 80053; 83880; 85025; 86140; 99283

== ENCOUNTER 2022-01-25 15:35 | Inpatient (IN) ==
[2022-01-25] MEDS ORDERED: Furosemide 40 mg/4 ml IV VIAL IV ONE ×2 (16:04→20:36)
[2022-01-25 16:40] LABS: ABS Basophils 0.1 10^3/ul (0-0.2); ABS Eosinophils 0.1 10^3/ul (0-0.6); ABS Lymphocytes 0.5 10^3/ul (1.0-4.8); ABS Monocytes 0.6 10^3/ul (0-0.8); ABS Neutrophils 3.8 10^3/ul (1.5-7.7); Eosinophil % 1.9 %; Hematocrit 43 % (42-52); Hemoglobin 14.4 g/dL (14.0-18.0); Lymphocyte % 10.6 %; Mean Corpuscular HGB Conc 33 g/dL (31-36); Mean Corpuscular Hemoglobin 33 pg (27-31); Mean Corpuscular Volume 100 fL (80-94); Mean Platelet Volume 8.3 fL (7.4-10.4); Nucleated Red Blood Cells % 0.1; Platelet Count 157 10^3/uL (150-450); Red Blood Count 4.32 10^6 /uL (4.18-5.48); Red Cell Distribution Width 16 % (10-15); White Blood Count 5.2 10^3/uL (3.5-10.8)
[2022-01-25 16:46] LABS: INR 2.74 (0.86-1.15)
[2022-01-25 17:20] LABS: Albumin 3.6 g/dL (3.2-5.2); Albumin/Globulin Ratio 0.9 (1-3); Potassium 4.2 mmol/L (3.5-5.0); Total Protein 7.6 g/dL (6.4-8.9); eGFR CKD-EPI 96.9 (>60)
[2022-01-25 18:09] LABS: Urine Appearance Clear; Urine Bilirubin Negative (Negative); Urine Blood Negative (Negative); Urine Color Yellow; Urine Glucose Negative (Negative); Urine Ketones Negative (Negative); Urine Nitrite Negative (Negative); Urine Protein Negative (Negative); Urine Specific Gravity 1.009 (1.002-1.030); Urine Urobilinogen Negative (Negative)
[2022-01-25 21:14] LABS: C Reactive Protein 5.9 mg/L (<8.01); Magnesium 2.2 mg/dL (1.9-2.7)
[2022-01-25 21:23] LABS: Digoxin 1.2 ng/ml (0.8-2.0)
[2022-01-26 06:00] LABS: ABS Basophils 0.1 10^3/ul (0-0.2); ABS Eosinophils 0.1 10^3/ul (0-0.6); ABS Lymphocytes 0.6 10^3/ul (1.0-4.8); ABS Monocytes 0.5 10^3/ul (0-0.8); ABS Neutrophils 3.6 10^3/ul (1.5-7.7); Eosinophil % 1.6 %; Hematocrit 43 % (42-52); Hemoglobin 14.3 g/dL (14.0-18.0); Lymphocyte % 12.7 %; Mean Corpuscular HGB Conc 34 g/dL (31-36); Mean Corpuscular Hemoglobin 34 pg (27-31); Mean Corpuscular Volume 100 fL (80-94); Mean Platelet Volume 8.3 fL (7.4-10.4); Nucleated Red Blood Cells % 0.1; Platelet Count 160 10^3/uL (150-450); Red Blood Count 4.28 10^6 /uL (4.18-5.48); Red Cell Distribution Width 16 % (10-15)
[2022-01-26 06:30] LABS: Calcium 8.8 mg/dL (8.6-10.3); Potassium 3.8 mmol/L (3.5-5.0)
[2022-01-26] MEDS: Warfarin DAILY REMINDER **NOTE FOLLOW UP SCH (16:32)
[2022-01-27 06:24] LABS: Hematocrit 43 % (42-52); Hemoglobin 14.3 g/dL (14.0-18.0); Mean Corpuscular HGB Conc 33 g/dL (31-36); Mean Corpuscular Hemoglobin 33 pg (27-31); Mean Corpuscular Volume 100 fL (80-94); Mean Platelet Volume 8.5 fL (7.4-10.4); Platelet Count 163 10^3/uL (150-450); Red Blood Count 4.32 10^6 /uL (4.18-5.48); Red Cell Distribution Width 16 % (10-15); White Blood Count 6.6 10^3/uL (3.5-10.8)
[2022-01-27 06:41] LABS: Calcium 8.7 mg/dL (8.6-10.3); Magnesium 2.1 mg/dL (1.9-2.7); Potassium 4.1 mmol/L (3.5-5.0); eGFR CKD-EPI 93.4 (>60)
[2022-01-27] MEDS ORDERED: Furosemide 40 mg/4 ml IV VIAL IV ONE (08:20)
[2022-01-27] MEDS: Warfarin DAILY REMINDER **NOTE FOLLOW UP SCH (17:24)
[2022-01-28 05:42] LABS: Calcium 8.8 mg/dL (8.6-10.3); Magnesium 2.3 mg/dL (1.9-2.7); Potassium 4.3 mmol/L (3.5-5.0); eGFR CKD-EPI 92.3 (>60)
[2022-01-28] MEDS: Albuterol HFA INHALER 8 gm MDI INH PRN (10:16)
[2022-01-28] MEDS: SPIRIVA Respimat (tiotropium) 2.5 mcg/inh Inhaler INH PRN (10:18)
[2022-01-28] MEDS: Warfarin DAILY REMINDER **NOTE FOLLOW UP SCH (18:17)
[2022-01-29] MEDS: Albuterol HFA INHALER 8 gm MDI INH PRN ×2 (11:43→21:49)
[2022-01-29] MEDS: SPIRIVA Respimat (tiotropium) 2.5 mcg/inh Inhaler INH PRN ×2 (11:47→21:48)
[2022-01-29] MEDS: Warfarin DAILY REMINDER **NOTE FOLLOW UP SCH (21:15)
[2022-01-30] MEDS: Warfarin DAILY REMINDER **NOTE FOLLOW UP SCH (21:03)
[2022-01-31] MEDS: Warfarin DAILY REMINDER **NOTE FOLLOW UP SCH ×2 (21:40→21:48)
[2022-02-01] MEDS: Warfarin DAILY REMINDER **NOTE FOLLOW UP SCH (21:44)
[2022-02-02] MEDS: Warfarin DAILY REMINDER **NOTE FOLLOW UP SCH (19:57)
[2022-02-03] MEDS ORDERED: Furosemide 20 mg/2 ml IV VIAL IV ONE (10:29)
[2022-02-03] MEDS: Warfarin DAILY REMINDER **NOTE FOLLOW UP SCH (21:10)
[2022-02-04 06:04] LABS: ABS Basophils 0.1 10^3/ul (0-0.2); ABS Eosinophils 0.1 10^3/ul (0-0.6); ABS Lymphocytes 0.6 10^3/ul (1.0-4.8); ABS Monocytes 0.7 10^3/ul (0-0.8); ABS Neutrophils 4.1 10^3/ul (1.5-7.7); Eosinophil % 2.1 %; Hematocrit 44 % (42-52); Hemoglobin 14.3 g/dL (14.0-18.0); Lymphocyte % 10.2 %; Mean Corpuscular HGB Conc 33 g/dL (31-36); Mean Corpuscular Hemoglobin 33 pg (27-31); Mean Corpuscular Volume 100 fL (80-94); Mean Platelet Volume 8.9 fL (7.4-10.4); Platelet Count 188 10^3/uL (150-450); Red Blood Count 4.37 10^6 /uL (4.18-5.48); Red Cell Distribution Width 16 % (10-15); White Blood Count 5.6 10^3/uL (3.5-10.8)
[2022-02-04 06:29] LABS: Calcium 8.5 mg/dL (8.6-10.3); Magnesium 2.2 mg/dL (1.9-2.7); Potassium 4.5 mmol/L (3.5-5.0)
[2022-02-04] MEDS ORDERED: Furosemide 20 mg/2 ml IV VIAL IV ONE (14:50)
[2022-02-04] MEDS: Warfarin DAILY REMINDER **NOTE FOLLOW UP SCH (22:00)
[2022-02-05 06:00] LABS: Hematocrit 43 % (42-52); Hemoglobin 14.1 g/dL (14.0-18.0); Mean Corpuscular HGB Conc 33 g/dL (31-36); Mean Corpuscular Hemoglobin 33 pg (27-31); Mean Corpuscular Volume 100 fL (80-94); Mean Platelet Volume 8.7 fL (7.4-10.4); Platelet Count 201 10^3/uL (150-450); Red Blood Count 4.29 10^6 /uL (4.18-5.48); Red Cell Distribution Width 15 % (10-15); White Blood Count 5.9 10^3/uL (3.5-10.8)
[2022-02-05] MEDS ORDERED: NS 0.9% 1000 ml BAG 1,000 ML IV SCH (06:00)
[2022-02-05 06:18] LABS: Calcium 8.6 mg/dL (8.6-10.3); Magnesium 2.1 mg/dL (1.9-2.7); Potassium 4.2 mmol/L (3.5-5.0); eGFR CKD-EPI 95.7 (>60)
[2022-02-05] MEDS ORDERED: ceFAZolin 2 GM PREMIX 2 GM/50 ML BAG IVPB ONE (07:00)
[2022-02-05] MEDS ORDERED: ceFAZolin 1 GM X ONE DOSE (AddVan) IVPB (07:00)
[2022-02-05] MEDS ORDERED: Lidocaine 1% MPF 5 ML VIAL ONE (08:38)
[2022-02-05] MEDS ORDERED: fentaNYL 100 mcg/2 ml 50 MCG/ML VIAL ONE (08:39)
[2022-02-05] MEDS ORDERED: Midazolam 5 mg/5 ml VIAL 1 mg/ml 5 ml VIAL (5 mg) ONE (08:39)
[2022-02-05] MEDS ORDERED: Furosemide 20 mg/2 ml IV VIAL IV ONE (14:22)
[2022-02-05] MEDS: ceFAZolin 1 GM ADVAN 1 GM in NS 0.9% 50 ML 50 ML IVPB SCH (18:05)
[2022-02-05] MEDS: Warfarin DAILY REMINDER **NOTE FOLLOW UP SCH (22:33)
[2022-02-06] MEDS: ceFAZolin 1 GM ADVAN 1 GM in NS 0.9% 50 ML 50 ML IVPB SCH ×2 (00:24→10:12)
[2022-02-06 06:43] LABS: Calcium 8.3 mg/dL (8.6-10.3); Potassium 4.2 mmol/L (3.5-5.0); eGFR CKD-EPI 96.9 (>60)
[2022-02-06 08:45] LABS: INR 1.63 (0.86-1.15)
[2022-02-06 10:21] LABS: ABS Lymphocytes 0.6 10^3/ul (1.0-4.8); ABS Monocytes 0.7 10^3/ul (0-0.8); Eosinophil % 0.6 %; Hematocrit 43 % (42-52); Hemoglobin 14.5 g/dL (14.0-18.0); Lymphocyte % 8.6 %; Mean Corpuscular HGB Conc 34 g/dL (31-36); Mean Corpuscular Hemoglobin 33 pg (27-31); Mean Corpuscular Volume 100 fL (80-94); Mean Platelet Volume 8.5 fL (7.4-10.4); Platelet Count 211 10^3/uL (150-450); Red Blood Count 4.33 10^6 /uL (4.18-5.48); Red Cell Distribution Width 16 % (10-15); White Blood Count 7.4 10^3/uL (3.5-10.8)
[2022-02-06] MEDS ORDERED: Warfarin per PHARMACY **NOTE FOLLOW UP SCH (11:00)
[2022-02-06 11:03] LABS: eGFR CKD-EPI 93.4 (>60)
[2022-02-06] MEDS: Heparin DRIP 25,000 UNITS BAG 25,000 UNITS/500 ML BAG IV SCH (11:34)
[2022-02-06] MEDS: Heparin 5000 UNITS/ML 1 mL VIAL IV SCH (11:35)
[2022-02-06] MEDS: Warfarin DAILY REMINDER **NOTE FOLLOW UP SCH (20:20)
[2022-02-07] MEDS: Heparin 5000 UNITS/ML 1 mL VIAL IV SCH (00:43)
[2022-02-07 07:19] LABS: ABS Basophils 0.2 10^3/ul (0-0.2); ABS Eosinophils 0.1 10^3/ul (0-0.6); ABS Lymphocytes 0.8 10^3/ul (1.0-4.8); ABS Monocytes 0.7 10^3/ul (0-0.8); ABS Neutrophils 4.5 10^3/ul (1.5-7.7); Eosinophil % 1.1 %; Hematocrit 42 % (42-52); Hemoglobin 13.9 g/dL (14.0-18.0); Lymphocyte % 12.6 %; Mean Corpuscular HGB Conc 33 g/dL (31-36); Mean Corpuscular Hemoglobin 33 pg (27-31); Mean Corpuscular Volume 100 fL (80-94); Mean Platelet Volume 8.8 fL (7.4-10.4); Nucleated Red Blood Cells % 0.1; Platelet Count 213 10^3/uL (150-450); Red Blood Count 4.25 10^6 /uL (4.18-5.48); Red Cell Distribution Width 15 % (10-15); White Blood Count 6.2 10^3/uL (3.5-10.8)
[2022-02-07 07:30] LABS: Activated Partial Thrombo Time 88.2 seconds (26.0-38.0); INR 1.65 (0.86-1.15)
[2022-02-07 07:56] LABS: Calcium 8.3 mg/dL (8.6-10.3); eGFR CKD-EPI 106.1 (>60)
[2022-02-07] MEDS: Heparin DRIP 25,000 UNITS BAG 25,000 UNITS/500 ML BAG IV SCH (08:36)
[2022-02-07 14:14] LABS: Rapid COVID-19 Molecular Undetected (Undetected)
[2022-02-07] MEDS: Nystatin TOP POWDER 15 GM BTL TOPICAL SCH ×2 (16:47→23:30)
[2022-02-07] MEDS: Warfarin DAILY REMINDER **NOTE FOLLOW UP SCH (23:32)
[2022-02-08 03:35] LABS: ABS Basophils 0.1 10^3/ul (0-0.2); ABS Eosinophils 0.1 10^3/ul (0-0.6); ABS Lymphocytes 0.8 10^3/ul (1.0-4.8); ABS Monocytes 0.6 10^3/ul (0-0.8); ABS Neutrophils 4.8 10^3/ul (1.5-7.7); Eosinophil % 1.6 %; Hematocrit 40 % (42-52); Hemoglobin 13.5 g/dL (14.0-18.0); Lymphocyte % 12.3 %; Mean Corpuscular HGB Conc 34 g/dL (31-36); Mean Corpuscular Hemoglobin 33 pg (27-31); Mean Corpuscular Volume 99 fL (80-94); Mean Platelet Volume 8.5 fL (7.4-10.4); Platelet Count 224 10^3/uL (150-450); Red Blood Count 4.07 10^6 /uL (4.18-5.48); Red Cell Distribution Width 15 % (10-15); White Blood Count 6.4 10^3/uL (3.5-10.8)
[2022-02-08 03:40] LABS: INR 1.79 (0.86-1.15)
[2022-02-08 04:17] LABS: Calcium 7.9 mg/dL (8.6-10.3); Potassium 3.6 mmol/L (3.5-5.0); eGFR CKD-EPI 107.7 (>60)
[2022-02-08] MEDS: Heparin DRIP 25,000 UNITS BAG 25,000 UNITS/500 ML BAG IV SCH (07:30)
[2022-02-08] MEDS: Nystatin TOP POWDER 15 GM BTL TOPICAL SCH ×3 (11:25→20:51)
[2022-02-08 12:01] LABS: C Reactive Protein 58.48 mg/L (<8.01)
[2022-02-08] MEDS: ceFAZolin 1 GM ADVAN 1 GM in NS 0.9% 50 ML 50 ML IVPB SCH ×2 (12:43→19:37)
[2022-02-08] MEDS: Warfarin DAILY REMINDER **NOTE FOLLOW UP SCH (22:43)
[2022-02-09] MEDS: ceFAZolin 1 GM ADVAN 1 GM in NS 0.9% 50 ML 50 ML IVPB SCH ×3 (02:46→17:53)
[2022-02-09] MEDS: Heparin DRIP 25,000 UNITS BAG 25,000 UNITS/500 ML BAG IV SCH (06:24)
[2022-02-09 06:37] LABS: ABS Basophils 0.1 10^3/ul (0-0.2); ABS Lymphocytes 0.8 10^3/ul (1.0-4.8); ABS Monocytes 0.7 10^3/ul (0-0.8); ABS Neutrophils 4.8 10^3/ul (1.5-7.7); Eosinophil % 0.7 %; Hematocrit 40 % (42-52); Hemoglobin 13.4 g/dL (14.0-18.0); Lymphocyte % 11.8 %; Mean Corpuscular HGB Conc 34 g/dL (31-36); Mean Corpuscular Hemoglobin 34 pg (27-31); Mean Corpuscular Volume 99 fL (80-94); Mean Platelet Volume 8.5 fL (7.4-10.4); Nucleated Red Blood Cells % 0.1; Platelet Count 232 10^3/uL (150-450); Red Blood Count 3.99 10^6 /uL (4.18-5.48); Red Cell Distribution Width 15 % (10-15); White Blood Count 6.4 10^3/uL (3.5-10.8)
[2022-02-09 06:47] LABS: Activated Partial Thrombo Time 60.6 seconds (26.0-38.0); INR 2.15 (0.86-1.15)
[2022-02-09] MEDS: Nystatin TOP POWDER 15 GM BTL TOPICAL SCH ×3 (09:10→23:09)
[2022-02-09 12:56] LABS: Erythrocyte Sed Rate 74 mm/Hr (0-14)
[2022-02-09] MEDS: Warfarin DAILY REMINDER **NOTE FOLLOW UP SCH (23:09)
[2022-02-10] MEDS: ceFAZolin 1 GM ADVAN 1 GM in NS 0.9% 50 ML 50 ML IVPB SCH ×3 (03:21→19:08)
[2022-02-10] MEDS: Heparin DRIP 25,000 UNITS BAG 25,000 UNITS/500 ML BAG IV SCH (05:11)
[2022-02-10 06:11] LABS: ABS Lymphocytes 0.8 10^3/ul (1.0-4.8); ABS Monocytes 0.8 10^3/ul (0-0.8); ABS Neutrophils 5.7 10^3/ul (1.5-7.7); Eosinophil % 0.5 %; Hematocrit 41 % (42-52); Hemoglobin 13.6 g/dL (14.0-18.0); Lymphocyte % 11.4 %; Mean Corpuscular HGB Conc 33 g/dL (31-36); Mean Corpuscular Hemoglobin 33 pg (27-31); Mean Corpuscular Volume 99 fL (80-94); Mean Platelet Volume 8.5 fL (7.4-10.4); Nucleated Red Blood Cells % 0.1; Platelet Count 227 10^3/uL (150-450); Red Blood Count 4.13 10^6 /uL (4.18-5.48); Red Cell Distribution Width 15 % (10-15); White Blood Count 7.4 10^3/uL (3.5-10.8)
[2022-02-10 06:29] LABS: Activated Partial Thrombo Time 47.5 seconds (26.0-38.0); INR 2.42 (0.86-1.15)
[2022-02-10 06:31] LABS: Calcium 8.4 mg/dL (8.6-10.3); Potassium 3.9 mmol/L (3.5-5.0); eGFR CKD-EPI 100.7 (>60)
[2022-02-10] MEDS: Heparin 5000 UNITS/ML 1 mL VIAL IV SCH (07:29)
[2022-02-10] MEDS: Nystatin TOP POWDER 15 GM BTL TOPICAL SCH ×3 (08:56→20:55)
[2022-02-10] MEDS: Warfarin DAILY REMINDER **NOTE FOLLOW UP SCH (20:37)
[2022-02-11] MEDS: Heparin DRIP 25,000 UNITS BAG 25,000 UNITS/500 ML BAG IV SCH (02:02)
[2022-02-11] MEDS: ceFAZolin 1 GM ADVAN 1 GM in NS 0.9% 50 ML 50 ML IVPB SCH ×2 (02:04→10:43)
[2022-02-11 06:01] LABS: ABS Basophils 0.1 10^3/ul (0-0.2); ABS Lymphocytes 0.9 10^3/ul (1.0-4.8); ABS Monocytes 0.9 10^3/ul (0-0.8); Eosinophil % 0.6 %; Hematocrit 39 % (42-52); Hemoglobin 12.9 g/dL (14.0-18.0); Lymphocyte % 12.5 %; Mean Corpuscular HGB Conc 33 g/dL (31-36); Mean Corpuscular Hemoglobin 33 pg (27-31); Mean Corpuscular Volume 99 fL (80-94); Mean Platelet Volume 8.2 fL (7.4-10.4); Platelet Count 236 10^3/uL (150-450); Red Blood Count 3.94 10^6 /uL (4.18-5.48); Red Cell Distribution Width 16 % (10-15); White Blood Count 6.9 10^3/uL (3.5-10.8)
[2022-02-11 06:40] LABS: Calcium 8.3 mg/dL (8.6-10.3); Potassium 3.6 mmol/L (3.5-5.0); eGFR CKD-EPI 78.8 (>60)
[2022-02-11] MEDS ORDERED: Potassium Chlor 20 meq TAB.ER PO ONE (08:16)
[2022-02-11 08:21] LABS: INR 2.41 (0.86-1.15)
[2022-02-11] MEDS ORDERED: Heparin DRIP 25,000 UNITS BAG 25,000 UNITS/500 ML BAG IV SCH (09:15)
[2022-02-11] MEDS ORDERED: Heparin 5000 UNITS/ML 1 mL VIAL IV SCH (10:00)
[2022-02-11] MEDS: Nystatin TOP POWDER 15 GM BTL TOPICAL SCH ×3 (11:00→20:22)
[2022-02-11] MEDS: Warfarin DAILY REMINDER **NOTE FOLLOW UP SCH (17:34)
[2022-02-12 07:07] LABS: Hematocrit 42 % (42-52); Hemoglobin 13.9 g/dL (14.0-18.0); Mean Corpuscular HGB Conc 34 g/dL (31-36); Mean Corpuscular Hemoglobin 33 pg (27-31); Mean Corpuscular Volume 99 fL (80-94); Mean Platelet Volume 8.7 fL (7.4-10.4); Platelet Count 254 10^3/uL (150-450); Red Cell Distribution Width 15 % (10-15); White Blood Count 6.2 10^3/uL (3.5-10.8)
[2022-02-12 07:27] LABS: Activated Partial Thrombo Time 61.1 seconds (26.0-38.0); INR 2.74 (0.86-1.15)
[2022-02-12 07:30] LABS: C Reactive Protein 76.7 mg/L (<8.01); Calcium 8.7 mg/dL (8.6-10.3); Potassium 4.1 mmol/L (3.5-5.0); eGFR CKD-EPI 105.4 (>60)
[2022-02-12] MEDS ORDERED: Furosemide 20 mg/2 ml IV VIAL IV ONE (07:57)
[2022-02-12] MEDS: Nystatin TOP POWDER 15 GM BTL TOPICAL SCH ×3 (09:49→20:38)
[2022-02-12] MEDS: Warfarin DAILY REMINDER **NOTE FOLLOW UP SCH (16:40)
[2022-02-13 06:03] LABS: Activated Partial Thrombo Time 42.5 seconds (26.0-38.0)
[2022-02-13 06:14] LABS: Calcium 8.3 mg/dL (8.6-10.3); Magnesium 2.1 mg/dL (1.9-2.7); Potassium 4.2 mmol/L (3.5-5.0); eGFR CKD-EPI 85.1 (>60)
[2022-02-13] MEDS ORDERED: Furosemide 20 mg/2 ml IV VIAL IV ONE (08:41)
[2022-02-13 08:46] LABS: INR 2.8 (0.86-1.15)
[2022-02-13] MEDS: Nystatin TOP POWDER 15 GM BTL TOPICAL SCH (10:48)
[2022-02-13 11:16] LABS: Rapid COVID-19 Molecular Undetected (Undetected)
[2022-02-13 15:43] VITALS: BP 118/62
== END 2022-02-13 09:08 | DRG 258 ==
LOC: ED 15:35 → EDHOLD 20:04 → SUATTDRO 20:04 → EDHOLD 01-26 01:02 → MEDTELE 01-26 02:34
PROVIDERS: ADMIT Internal Medicine; ATTEND Internal Medicine
PROC: PACEGEN (ICD-10-PCS; 2022-02-05 09:20)

== ENCOUNTER 2022-02-05 10:14 | Inpatient (IN) ==
[2022-02-08] MEDS ORDERED: Senna TAB 8.6 mg TAB PO PRN (08:36)
[2022-02-08] MEDS ORDERED: Heparin DRIP 25,000 UNITS BAG 25,000 UNITS/500 ML BAG IV SCH (09:00)
[2022-02-08] MEDS ORDERED: Heparin 5000 UNITS/ML 1 mL VIAL IV SCH (09:00)
[2022-02-08] MEDS ORDERED: SPIRIVA Respimat (tiotropium) 2.5 mcg/inh Inhaler INH PRN (09:01)
[2022-02-08] MEDS ORDERED: Albuterol HFA INHALER 8 gm MDI INH PRN (09:02)
[2022-02-13] MEDS ORDERED: Albuterol HFA INHALER 8 gm MDI INH PRN (14:49)
[2022-02-13] MEDS: Nystatin TOP POWDER 15 GM BTL TOPICAL SCH ×9 (15:28→22:04)
[2022-02-13] MEDS: Potassium Chlor 20 meq TAB.ER PO SCH ×6 (15:28→15:46)
[2022-02-13] MEDS: Multivitamins/Minerals TAB PO SCH ×4 (15:29→15:45)
[2022-02-13] MEDS ORDERED: Senna TAB 8.6 mg TAB PO PRN (21:00)
[2022-02-14] MEDS: Multivitamins/Minerals TAB PO SCH (07:55)
[2022-02-14] MEDS: Nystatin TOP POWDER 15 GM BTL TOPICAL SCH ×3 (08:40→19:54)
[2022-02-14] MEDS: SPIRIVA Respimat (tiotropium) 2.5 mcg/inh Inhaler INH SCH (10:57)
[2022-02-15] MEDS: Nystatin TOP POWDER 15 GM BTL TOPICAL SCH ×3 (09:00→20:17)
[2022-02-15] MEDS: Multivitamins/Minerals TAB PO SCH (09:01)
[2022-02-15] MEDS: SPIRIVA Respimat (tiotropium) 2.5 mcg/inh Inhaler INH SCH (09:03)
[2022-02-15 17:03] LABS: INR 3.22 (0.86-1.15)
[2022-02-16 06:31] LABS: Hematocrit 38 % (42-52); Hemoglobin 12.6 g/dL (14.0-18.0); Mean Corpuscular HGB Conc 33 g/dL (31-36); Mean Corpuscular Hemoglobin 32 pg (27-31); Mean Corpuscular Volume 99 fL (80-94); Mean Platelet Volume 8.2 fL (7.4-10.4); Platelet Count 247 10^3/uL (150-450); Red Blood Count 3.89 10^6 /uL (4.18-5.48); Red Cell Distribution Width 16 % (10-15); White Blood Count 4.8 10^3/uL (3.5-10.8)
[2022-02-16 07:01] LABS: Albumin/Globulin Ratio 0.7 (1-3); Calcium 8.5 mg/dL (8.6-10.3); Globulin 4.1 g/dL (2-4); Potassium 4.5 mmol/L (3.5-5.0); Total Bilirubin 0.5 mg/dL (0.2-1.0); Total Protein 7.1 g/dL (6.4-8.9); eGFR CKD-EPI 80.5 (>60)
[2022-02-16 07:09] LABS: ABS Basophils 0.2 10^3/ul (0-0.2); ABS Eosinophils 0.1 10^3/ul (0-0.6); ABS Lymphocytes 0.9 10^3/ul (1.0-4.8); ABS Monocytes 0.6 10^3/ul (0-0.8); Lymphocyte % 19.2 %
[2022-02-16] MEDS: Multivitamins/Minerals TAB PO SCH (09:12)
[2022-02-16] MEDS: Nystatin TOP POWDER 15 GM BTL TOPICAL SCH ×3 (09:12→20:46)
[2022-02-16] MEDS: SPIRIVA Respimat (tiotropium) 2.5 mcg/inh Inhaler INH SCH (09:17)
[2022-02-16 13:47] LABS: INR 3.12 (0.86-1.15)
[2022-02-16] MEDS: Warfarin DAILY REMINDER **NOTE FOLLOW UP SCH (17:10)
[2022-02-17] MEDS: Multivitamins/Minerals TAB PO SCH (09:05)
[2022-02-17] MEDS: SPIRIVA Respimat (tiotropium) 2.5 mcg/inh Inhaler INH SCH (09:08)
[2022-02-17] MEDS: Nystatin TOP POWDER 15 GM BTL TOPICAL SCH ×3 (09:11→20:15)
[2022-02-17 10:22] LABS: C Reactive Protein 19.06 mg/L (<8.01)
[2022-02-17] MEDS: Warfarin DAILY REMINDER **NOTE FOLLOW UP SCH (17:07)
[2022-02-18 06:15] LABS: INR 2.86 (0.86-1.15)
[2022-02-18] MEDS: SPIRIVA Respimat (tiotropium) 2.5 mcg/inh Inhaler INH SCH (09:04)
[2022-02-18] MEDS: Multivitamins/Minerals TAB PO SCH (09:05)
[2022-02-18] MEDS: Nystatin TOP POWDER 15 GM BTL TOPICAL SCH ×3 (09:09→20:46)
[2022-02-18] MEDS: Warfarin DAILY REMINDER **NOTE FOLLOW UP SCH (17:15)
[2022-02-19 04:49] VITALS: BP 110/66
[2022-02-19] MEDS: Multivitamins/Minerals TAB PO SCH (09:36)
[2022-02-19] MEDS: Nystatin TOP POWDER 15 GM BTL TOPICAL SCH (09:36)
[2022-02-19] MEDS: SPIRIVA Respimat (tiotropium) 2.5 mcg/inh Inhaler INH SCH (09:37)
== END 2022-02-19 11:46 | disposition home or self-care (01) | DRG 292 ==
LOC: PMRU 02-13 12:47
PROVIDERS: ADMIT Physical Medicine & Rehabilitation; ATTEND Physical Medicine & Rehabilitation

== ENCOUNTER 2023-05-14 15:02 | Inpatient (IN) ==
[2023-05-14] MEDS ORDERED: Furosemide 40 mg/4 ml IV VIAL IV SLOW PU ONE (15:50)
[2023-05-14 16:49] LABS: ABS Basophils 0.1 10^3/uL (0.0-0.1); ABS Eosinophils 0.1 10^3/uL (0.0-0.5); ABS Lymphocytes 0.9 10^3/uL (1.0-4.8); ABS Monocytes 0.7 10^3/uL (0.0-1.1); ABS Neutrophils 4.6 10^3/uL (1.5-7.6); Eosinophil % 0.9 %; Hematocrit 40.1 % (38-53); Hemoglobin 13.8 g/dL (13.2-16.3); Lymphocyte % 14.3 %; Mean Corpuscular Hemoglobin 35.4 pg (27-33); Mean Corpuscular Hgb Conc 34.3 g/dL (31-36); Mean Corpuscular Volume 103.2 fL (80-97); Mean Platelet Volume 8.2 fL (7.5-11.2); Platelet Count 149 10^3/uL (150-450); Red Blood Count 3.89 10^6/uL (4.06-5.63); Red Cell Distribution Width 14.9 % (12-17); White Blood Count 6.3 10^3/uL (3.6-10.2)
[2023-05-14 16:54] LABS: INR 3.08 (0.83-1.13)
[2023-05-14 17:02] LABS: Albumin 3.8 g/dL (3.2-5.2); Potassium 4.1 mmol/L (3.5-5.0); Total Bilirubin 1.1 mg/dL (0.2-1.0)
[2023-05-14 17:08] LABS: C Reactive Protein 15.86 mg/L (<8.01); Creatinine, Serum 1.04 mg/dL (0.67-1.17); Globulin 3.9 g/dL (2-4); Total Protein 7.7 g/dL (6.4-8.9); eGFR CKD-EPI 87.5 (>60)
[2023-05-14 18:23] LABS: High Sensitivity Troponin 1 Hr 16 pg/mL (<20)
[2023-05-14 18:34] LABS: Urine Appearance Clear; Urine Bilirubin Negative (Negative); Urine Blood Negative (Negative); Urine Color Straw; Urine Glucose Negative (Negative); Urine Ketones Negative (Negative); Urine Nitrite Negative (Negative); Urine Protein Negative (Negative); Urine Specific Gravity 1.004 (1.002-1.030); Urine Urobilinogen Negative (Negative)
[2023-05-14] MEDS ORDERED: Albuterol/Ipratropium NEB.SOL (2.5/0.5 MG) 3 ML NEB.SOLN INH ONE (19:36)
[2023-05-14] MEDS ORDERED: WARFARIN PER PHARMACY FOLLOW UP SCH (22:00)
[2023-05-14] MEDS: Albuterol HFA INHALER 8 gm MDI INH PRN (22:11)
[2023-05-14 22:37] LABS: Magnesium 1.8 mg/dL (1.9-2.7)
[2023-05-14] MEDS ORDERED: Magnesium Sulfate 2 gm BAG 2 GM/50 ML BAG IVPB ONE (23:04)
[2023-05-14] MEDS ORDERED: Dexamethasone IV 4 MG/ML VIAL 1 ml VIAL IV SLOW PU ONE (23:29)
[2023-05-14] MEDS ORDERED: Albuterol 2.5mg/3 ml (0.083%) NEB.SOLN INH ONE (23:30)
[2023-05-14] MEDS ORDERED: Acetylcysteine INH SOL (RT) 200 MG/ML 4 ML VIAL INH ONE (23:30)
[2023-05-14] MEDS ORDERED: guaiFENesin/CODIENE 100mg/10mg 5 ML UDC PO ONE (23:33)
[2023-05-15] MEDS ORDERED: Furosemide 20 mg/2 ml IV VIAL IV SLOW PU ONE (00:18)
[2023-05-15 05:57] LABS: Hematocrit 42.4 % (38-53); Hemoglobin 14.7 g/dL (13.2-16.3); Mean Corpuscular Hemoglobin 35.7 pg (27-33); Mean Corpuscular Hgb Conc 34.7 g/dL (31-36); Mean Corpuscular Volume 102.9 fL (80-97); Mean Platelet Volume 8.5 fL (7.5-11.2); Platelet Count 172 10^3/uL (150-450); Red Blood Count 4.12 10^6/uL (4.06-5.63); Red Cell Distribution Width 15.1 % (12-17); White Blood Count 7.4 10^3/uL (3.6-10.2)
[2023-05-15 05:58] LABS: INR 3.21 (0.83-1.13)
[2023-05-15 06:07] LABS: Anion Gap 8 mmol/L (2-16); Blood Urea Nitrogen 25 mg/dL (6-24); CO2 Carbon Dioxide 28 mmol/L (22-32); Calcium 9.2 mg/dL (8.6-10.3); Chloride 98 mmol/L (101-111); Creatinine, Serum 1.05 mg/dL (0.67-1.17); Glucose 147 mg/dL (70-100); Magnesium 2.3 mg/dL (1.9-2.7); Potassium 4.1 mmol/L (3.5-5.0); Sodium 134 mmol/L (135-145); eGFR CKD-EPI 86.5 (>60)
[2023-05-15 06:23] LABS: TSH Ultra Thyroid Stim Horm 1.83 mcIU/mL (0.34-5.60)
[2023-05-15 06:35] LABS: Folate > 20.00 ng/mL (5.90-24.80)
[2023-05-15 06:36] LABS: Vitamin B12 > 1450 pg/mL (180-914)
[2023-05-15] MEDS: Albuterol/Ipratropium NEB.SOL (2.5/0.5 MG) 3 ML NEB.SOLN INH SCH ×2 (07:26→17:55)
[2023-05-15] MEDS ORDERED: Furosemide 40 mg/4 ml IV VIAL IV SCH (09:00)
[2023-05-15] MEDS: Nystatin TOP POWDER 15 GM BTL TOPICAL SCH ×2 (16:01→20:58)
[2023-05-16] MEDS: guaiFENesin 100 mg/5 ml LIQ unit dose cup PO PRN (01:08)
[2023-05-16] MEDS: Albuterol HFA INHALER 8 gm MDI INH PRN (01:10)
[2023-05-16] MEDS ORDERED: Furosemide 40 mg/4 ml IV VIAL IV SCH (06:00)
[2023-05-16 06:06] LABS: INR 3.51 (0.83-1.13)
[2023-05-16 06:13] LABS: ABS Basophils 0.1 10^3/uL (0.0-0.1); ABS Lymphocytes 1.2 10^3/uL (1.0-4.8); ABS Monocytes 0.8 10^3/uL (0.0-1.1); ABS Neutrophils 8.1 10^3/uL (1.5-7.6); ABS Nucleated RBC 0.01 10^3/ul; Eosinophil % 0.2 %; Hematocrit 39.2 % (38-53); Hemoglobin 13.6 g/dL (13.2-16.3); Lymphocyte % 11.5 %; Mean Corpuscular Hemoglobin 35.8 pg (27-33); Mean Corpuscular Hgb Conc 34.7 g/dL (31-36); Mean Corpuscular Volume 103.3 fL (80-97); Mean Platelet Volume 8.5 fL (7.5-11.2); Nucleated Red Blood Cells % 0.1 /100 WBC (0.0-0.4); Platelet Count 162 10^3/uL (150-450); Red Blood Count 3.79 10^6/uL (4.06-5.63); Red Cell Distribution Width 14.9 % (12-17); White Blood Count 10.2 10^3/uL (3.6-10.2)
[2023-05-16 06:14] LABS: Creatinine, Serum 1.03 mg/dL (0.67-1.17); Magnesium 2.2 mg/dL (1.9-2.7); eGFR CKD-EPI 88.5 (>60)
[2023-05-16] MEDS: Albuterol/Ipratropium NEB.SOL (2.5/0.5 MG) 3 ML NEB.SOLN INH SCH ×3 (08:13→19:27)
[2023-05-16] MEDS: Nystatin TOP POWDER 15 GM BTL TOPICAL SCH ×3 (11:07→20:27)
[2023-05-16] MEDS: Warfarin per PHARMACY **NOTE FOLLOW UP SCH ×2 (11:24→19:20)
[2023-05-16] MEDS: cefTRIAXone 1 gm/50 mL D5W 1 GM/50 ML BAG IV SCH (12:10)
[2023-05-16] MEDS: Azithromycin 500 mg/250 ml NS 500 MG/250 ML BAG IVPB SCH (13:00)
[2023-05-16] MEDS ORDERED: Albuterol/Ipratropium NEB.SOL (2.5/0.5 MG) 3 ML NEB.SOLN ONE (19:12)
[2023-05-16] MEDS: Warfarin DAILY REMINDER **NOTE FOLLOW UP SCH (19:19)
[2023-05-17] MEDS: Albuterol/Ipratropium NEB.SOL (2.5/0.5 MG) 3 ML NEB.SOLN INH SCH ×4 (01:40→19:33)
[2023-05-17 06:35] LABS: INR 2.47 (0.83-1.13)
[2023-05-17 06:38] LABS: Hematocrit 40.9 % (38-53); Mean Corpuscular Hemoglobin 35.5 pg (27-33); Mean Corpuscular Hgb Conc 34.2 g/dL (31-36); Mean Corpuscular Volume 103.7 fL (80-97); Mean Platelet Volume 8.5 fL (7.5-11.2); Platelet Count 183 10^3/uL (150-450); Red Blood Count 3.94 10^6/uL (4.06-5.63); Red Cell Distribution Width 15.5 % (12-17)
[2023-05-17 06:44] LABS: Calcium 8.7 mg/dL (8.6-10.3); Potassium 3.8 mmol/L (3.5-5.0)
[2023-05-17 06:49] LABS: Creatinine, Serum 1.14 mg/dL (0.67-1.17); eGFR CKD-EPI 78.4 (>60)
[2023-05-17 07:38] LABS: ABS Eosinophils 0.1 10^3/uL (0.0-0.5); ABS Lymphocytes 1.1 10^3/uL (1.0-4.8); ABS Monocytes 0.8 10^3/uL (0.0-1.1); ABS Neutrophils 6.1 10^3/uL (1.5-7.6); Eosinophil % 1.1 %; Lymphocyte % 13.7 %
[2023-05-17] MEDS ORDERED: Potassium Chlor 20 meq TAB.ER PO ONE (07:38)
[2023-05-17] MEDS: Nystatin TOP POWDER 15 GM BTL TOPICAL SCH ×3 (08:56→20:16)
[2023-05-17 10:40] LABS: C Reactive Protein 9.46 mg/L (<8.01)
[2023-05-17] MEDS: guaiFENesin 100 mg/5 ml LIQ unit dose cup PO PRN ×2 (11:20→17:16)
[2023-05-17] MEDS: cefTRIAXone 1 gm/50 mL D5W 1 GM/50 ML BAG IV SCH (14:04)
[2023-05-17] MEDS: Azithromycin 500 mg/250 ml NS 500 MG/250 ML BAG IVPB SCH (14:34)
[2023-05-17] MEDS: Warfarin per PHARMACY **NOTE FOLLOW UP SCH (17:16)
[2023-05-17] MEDS: Warfarin DAILY REMINDER **NOTE FOLLOW UP SCH (17:16)
[2023-05-18] MEDS: Albuterol/Ipratropium NEB.SOL (2.5/0.5 MG) 3 ML NEB.SOLN INH SCH ×4 (01:10→19:09)
[2023-05-18 05:47] LABS: INR 2.09 (0.83-1.13)
[2023-05-18 06:06] LABS: Calcium 8.3 mg/dL (8.6-10.3); Creatinine, Serum 1.24 mg/dL (0.67-1.17); Potassium 4.3 mmol/L (3.5-5.0); eGFR CKD-EPI 70.8 (>60)
[2023-05-18] MEDS: Albuterol HFA INHALER 8 gm MDI INH PRN (09:38)
[2023-05-18] MEDS ORDERED: Acetylcysteine INHALATION SOL 200 MG/ML NEB.SOLN 10 ML INH PRN (10:01)
[2023-05-18] MEDS: guaiFENesin 100 mg/5 ml LIQ unit dose cup PO PRN ×2 (10:03→22:52)
[2023-05-18] MEDS: Nystatin TOP POWDER 15 GM BTL TOPICAL SCH ×3 (10:07→20:45)
[2023-05-18] MEDS: cefTRIAXone 1 gm/50 mL D5W 1 GM/50 ML BAG IV SCH (11:59)
[2023-05-18] MEDS: Azithromycin 500 mg/250 ml NS 500 MG/250 ML BAG IVPB SCH (12:44)
[2023-05-18] MEDS: Warfarin DAILY REMINDER **NOTE FOLLOW UP SCH (17:08)
[2023-05-18] MEDS: Warfarin per PHARMACY **NOTE FOLLOW UP SCH (17:10)
[2023-05-19] MEDS: Albuterol/Ipratropium NEB.SOL (2.5/0.5 MG) 3 ML NEB.SOLN INH SCH ×3 (01:09→19:44)
[2023-05-19] MEDS ORDERED: Albuterol/Ipratropium NEB.SOL (2.5/0.5 MG) 3 ML NEB.SOLN INH ONE (02:12)
[2023-05-19] MEDS ORDERED: Furosemide 40 mg/4 ml IV VIAL IV SLOW PU ONE (02:29)
[2023-05-19 05:40] LABS: ABS Basophils 0.1 10^3/uL (0.0-0.1); ABS Eosinophils 0.1 10^3/uL (0.0-0.5); ABS Monocytes 0.7 10^3/uL (0.0-1.1); ABS Neutrophils 5.5 10^3/uL (1.5-7.6); ABS Nucleated RBC 0.01 10^3/ul; Eosinophil % 1.3 %; Hematocrit 38.7 % (38-53); Hemoglobin 13.3 g/dL (13.2-16.3); Lymphocyte % 13.7 %; Mean Corpuscular Hemoglobin 35.5 pg (27-33); Mean Corpuscular Hgb Conc 34.4 g/dL (31-36); Mean Corpuscular Volume 103.2 fL (80-97); Mean Platelet Volume 8.2 fL (7.5-11.2); Nucleated Red Blood Cells % 0.1 /100 WBC (0.0-0.4); Platelet Count 166 10^3/uL (150-450); Red Blood Count 3.75 10^6/uL (4.06-5.63); Red Cell Distribution Width 15.2 % (12-17); White Blood Count 7.4 10^3/uL (3.6-10.2)
[2023-05-19 05:46] LABS: INR 2.16 (0.83-1.13)
[2023-05-19 06:19] LABS: Calcium 8.5 mg/dL (8.6-10.3); Creatinine, Serum 1.17 mg/dL (0.67-1.17); Magnesium 2.1 mg/dL (1.9-2.7); Potassium 4.1 mmol/L (3.5-5.0); eGFR CKD-EPI 75.9 (>60)
[2023-05-19] MEDS: Budesonide NEB 0.25 MG/2 ML NEB.SOLN INH SCH ×2 (07:32→19:44)
[2023-05-19] MEDS: Albuterol HFA INHALER 8 gm MDI INH PRN (09:13)
[2023-05-19] MEDS ORDERED: Bumetanide IV 0.25 MG/ML 4 ml VIAL (1 mg) IV SLOW PU ONE (09:13)
[2023-05-19] MEDS: Nystatin TOP POWDER 15 GM BTL TOPICAL SCH ×3 (10:05→21:39)
[2023-05-19] MEDS: cefTRIAXone 1 gm/50 mL D5W 1 GM/50 ML BAG IV SCH (11:49)
[2023-05-19] MEDS ORDERED: Heparin 5000 UNITS/ML 1 mL VIAL ONE (17:34)
[2023-05-19] MEDS: Warfarin DAILY REMINDER **NOTE FOLLOW UP SCH (17:42)
[2023-05-19] MEDS: Warfarin per PHARMACY **NOTE FOLLOW UP SCH (17:42)
[2023-05-19] MEDS: Heparin 5000 UNITS/ML 1 mL VIAL IV SCH (17:46)
[2023-05-19] MEDS: Heparin DRIP 25,000 UNITS BAG 25,000 UNITS/500 ML BAG IV SCH (17:47)
[2023-05-19] MEDS ORDERED: Vancomycin per Pharmacy 1 EA NOTE FOLLOW UP PRN (18:08)
[2023-05-19] MEDS ORDERED: Vancomycin 1,500 MG in NS 0.9% 250 ml 250 ML IVPB ONE (18:30)
[2023-05-19] MEDS: Cefepime 1 GM in Dextrose 1 GM/50 ML BAG IV SCH (21:39)
[2023-05-20] MEDS: Heparin 5000 UNITS/ML 1 mL VIAL IV SCH (01:15)
[2023-05-20] MEDS: Cefepime 1 GM in Dextrose 1 GM/50 ML BAG IV SCH (06:13)
[2023-05-20] MEDS: Albuterol/Ipratropium NEB.SOL (2.5/0.5 MG) 3 ML NEB.SOLN INH SCH ×3 (06:59→19:04)
[2023-05-20] MEDS: Budesonide NEB 0.25 MG/2 ML NEB.SOLN INH SCH ×2 (07:00→19:04)
[2023-05-20 07:20] LABS: Hematocrit 36.6 % (38-53); Hemoglobin 12.6 g/dL (13.2-16.3); Mean Corpuscular Hemoglobin 35.7 pg (27-33); Mean Corpuscular Hgb Conc 34.4 g/dL (31-36); Mean Corpuscular Volume 103.8 fL (80-97); Mean Platelet Volume 8.3 fL (7.5-11.2); Platelet Count 158 10^3/uL (150-450); Red Blood Count 3.52 10^6/uL (4.06-5.63); Red Cell Distribution Width 15.4 % (12-17); White Blood Count 5.5 10^3/uL (3.6-10.2)
[2023-05-20 07:31] LABS: Activated Partial Thrombo Time 63.8 seconds (26.0-38.0); INR 2.09 (0.83-1.13)
[2023-05-20 07:44] LABS: Calcium 8.5 mg/dL (8.6-10.3); Creatinine, Serum 0.94 mg/dL (0.67-1.17); Magnesium 2.3 mg/dL (1.9-2.7); eGFR CKD-EPI 98.8 (>60)
[2023-05-20] MEDS: Nystatin TOP POWDER 15 GM BTL TOPICAL SCH ×3 (07:58→21:36)
[2023-05-20] MEDS ORDERED: Albuterol/Ipratropium NEB.SOL (2.5/0.5 MG) 3 ML NEB.SOLN INH SCH (09:00)
[2023-05-20] MEDS: Vancomycin 750 MG in NS 0.9% 250 ML IVPB SCH ×2 (09:37→18:23)
[2023-05-20 10:59] LABS: RBC Morphology Normal (Normal)
[2023-05-20 11:00] LABS: ABS Basophils 0.1 10^3/uL (0.0-0.1); ABS Eosinophils 0.1 10^3/uL (0.0-0.5); ABS Lymphocytes 0.7 10^3/uL (1.0-4.8); ABS Monocytes 0.6 10^3/uL (0.0-1.1); Eosinophil % 1.9 %; Lymphocyte % 13.6 %; Nucleated Red Blood Cells % 0.1 /100 WBC (0.0-0.4)
[2023-05-20] MEDS: Cefepime 2 GM in Dextrose 2 GM/50 ML BAG IV SCH (17:05)
[2023-05-20] MEDS: Nystatin SUSPENSION 100,000 UNITS/ML UDC PO SCH ×2 (17:10→21:36)
[2023-05-20] MEDS: Heparin DRIP 25,000 UNITS BAG 25,000 UNITS/500 ML BAG IV SCH (18:50)
[2023-05-20] MEDS: Warfarin DAILY REMINDER **NOTE FOLLOW UP SCH (18:54)
[2023-05-20] MEDS: Warfarin per PHARMACY **NOTE FOLLOW UP SCH (18:54)
[2023-05-21] MEDS: Cefepime 2 GM in Dextrose 2 GM/50 ML BAG IV SCH ×3 (00:59→15:39)
[2023-05-21] MEDS ORDERED: Vancomycin Trough Check NOTE FOLLOW UP ONE (06:00)
[2023-05-21 07:00] LABS: ABS Eosinophils 0.1 10^3/uL (0.0-0.5); ABS Lymphocytes 0.3 10^3/uL (1.0-4.8); ABS Monocytes 0.3 10^3/uL (0.0-1.1); ABS Neutrophils 5.6 10^3/uL (1.5-7.6); Activated Partial Thrombo Time 58.6 seconds (26.0-38.0); Eosinophil % 2.1 %; Hematocrit 36.5 % (38-53); Hemoglobin 12.6 g/dL (13.2-16.3); INR 2.74 (0.83-1.13); Lymphocyte % 4.6 %; Mean Corpuscular Hemoglobin 35.8 pg (27-33); Mean Corpuscular Hgb Conc 34.4 g/dL (31-36); Mean Corpuscular Volume 103.9 fL (80-97); Mean Platelet Volume 8.5 fL (7.5-11.2); Nucleated Red Blood Cells % 0.1 /100 WBC (0.0-0.4); Platelet Count 163 10^3/uL (150-450); Red Blood Count 3.51 10^6/uL (4.06-5.63); Red Cell Distribution Width 15.1 % (12-17); White Blood Count 6.4 10^3/uL (3.6-10.2)
[2023-05-21 07:22] LABS: Calcium 8.5 mg/dL (8.6-10.3); Creatinine, Serum 0.98 mg/dL (0.67-1.17); Magnesium 2.2 mg/dL (1.9-2.7); Potassium 4.1 mmol/L (3.5-5.0); eGFR CKD-EPI 93.9 (>60)
[2023-05-21 07:35] LABS: Vancomycin Trough 3.9 mcg/mL
[2023-05-21] MEDS: Albuterol/Ipratropium NEB.SOL (2.5/0.5 MG) 3 ML NEB.SOLN INH SCH ×3 (08:07→19:17)
[2023-05-21] MEDS: Budesonide NEB 0.25 MG/2 ML NEB.SOLN INH SCH ×2 (08:07→19:17)
[2023-05-21] MEDS: Nystatin SUSPENSION 100,000 UNITS/ML UDC PO SCH ×3 (09:34→18:08)
[2023-05-21] MEDS: Nystatin TOP POWDER 15 GM BTL TOPICAL SCH ×2 (09:34→13:53)
[2023-05-21] MEDS: Vancomycin 1,250 MG in NS 0.9% 250 ml 250 ML IVPB SCH ×2 (09:34→15:40)
[2023-05-21] MEDS: Vancomycin 750 MG in NS 0.9% 250 ML IVPB SCH (11:51)
[2023-05-22] MEDS: Warfarin per PHARMACY **NOTE FOLLOW UP SCH ×2 (00:24→21:11)
[2023-05-22] MEDS: Warfarin DAILY REMINDER **NOTE FOLLOW UP SCH ×2 (00:24→21:11)
[2023-05-22] MEDS: Cefepime 2 GM in Dextrose 2 GM/50 ML BAG IV SCH ×3 (00:25→17:00)
[2023-05-22] MEDS: Nystatin TOP POWDER 15 GM BTL TOPICAL SCH ×4 (00:35→21:16)
[2023-05-22] MEDS: Nystatin SUSPENSION 100,000 UNITS/ML UDC PO SCH ×5 (00:38→21:14)
[2023-05-22] MEDS: Vancomycin 1,250 MG in NS 0.9% 250 ml 250 ML IVPB SCH ×3 (01:40→23:41)
[2023-05-22 07:28] LABS: Activated Partial Thrombo Time 38.7 seconds (26.0-38.0); INR 2.43 (0.83-1.13)
[2023-05-22] MEDS: Albuterol/Ipratropium NEB.SOL (2.5/0.5 MG) 3 ML NEB.SOLN INH SCH ×4 (07:28→23:57)
[2023-05-22] MEDS: Budesonide NEB 0.25 MG/2 ML NEB.SOLN INH SCH ×2 (07:28→18:00)
[2023-05-22] MEDS ORDERED: Vancomycin Trough Check NOTE FOLLOW UP ONE ×2 (08:00→21:00)
[2023-05-22] MEDS ORDERED: Dexamethasone IV 4 MG/ML VIAL 1 ml VIAL IV SLOW PU ONE (09:35)
[2023-05-22] MEDS ORDERED: Lactated Ringers 1000 ml BAG 500 ML IV SCH (10:00)
[2023-05-22] MEDS ORDERED: Vancomycin Random Level NOTE FOLLOW UP ONE (20:00)
[2023-05-22 20:22] LABS: Creatinine, Serum 1.44 mg/dL (0.67-1.17); eGFR CKD-EPI 59.2 (>60)
[2023-05-22 20:43] LABS: Vancomycin Random 17.1 mcg/mL
[2023-05-22] MEDS: guaiFENesin 100 mg/5 ml LIQ unit dose cup PO PRN (21:24)
[2023-05-23] MEDS: Cefepime 2 GM in Dextrose 2 GM/50 ML BAG IV SCH ×4 (01:22→23:05)
[2023-05-23 06:57] LABS: Activated Partial Thrombo Time 37.1 seconds (26.0-38.0); INR 2.86 (0.83-1.13)
[2023-05-23] MEDS: Albuterol/Ipratropium NEB.SOL (2.5/0.5 MG) 3 ML NEB.SOLN INH SCH ×3 (08:04→19:29)
[2023-05-23] MEDS: Budesonide NEB 0.25 MG/2 ML NEB.SOLN INH SCH ×2 (08:05→19:28)
[2023-05-23] MEDS: Nystatin SUSPENSION 100,000 UNITS/ML UDC PO SCH ×4 (08:21→20:55)
[2023-05-23] MEDS: Nystatin TOP POWDER 15 GM BTL TOPICAL SCH ×3 (08:43→21:57)
[2023-05-23 10:46] LABS: ABS Eosinophils 0.1 10^3/uL (0.0-0.5); ABS Lymphocytes 0.4 10^3/uL (1.0-4.8); ABS Monocytes 0.4 10^3/uL (0.0-1.1); ABS Neutrophils 10.9 10^3/uL (1.5-7.6); Eosinophil % 0.5 %; Hematocrit 36.9 % (38-53); Hemoglobin 12.5 g/dL (13.2-16.3); Lymphocyte % 3.6 %; Mean Corpuscular Hemoglobin 35.2 pg (27-33); Mean Corpuscular Hgb Conc 33.9 g/dL (31-36); Mean Platelet Volume 8.5 fL (7.5-11.2); Platelet Count 162 10^3/uL (150-450); Red Blood Count 3.55 10^6/uL (4.06-5.63); Red Cell Distribution Width 15.3 % (12-17); White Blood Count 11.8 10^3/uL (3.6-10.2)
[2023-05-23 11:08] LABS: Calcium 8.8 mg/dL (8.6-10.3); Creatinine, Serum 1.2 mg/dL (0.67-1.17); Potassium 3.9 mmol/L (3.5-5.0); eGFR CKD-EPI 73.7 (>60)
[2023-05-23] MEDS: Vancomycin 1,250 MG in NS 0.9% 250 ml 250 ML IVPB SCH (12:40)
[2023-05-23] MEDS ORDERED: Albumin Human 25% 25 GM/100 ML BTL IV ONE (15:41)
[2023-05-23] MEDS: Warfarin per PHARMACY **NOTE FOLLOW UP SCH (15:58)
[2023-05-23] MEDS: Warfarin DAILY REMINDER **NOTE FOLLOW UP SCH (15:58)
[2023-05-23] MEDS ORDERED: Bumetanide IV 0.25 MG/ML 4 ml VIAL (1 mg) IV SLOW PU ONE (19:00)
[2023-05-23] MEDS: guaiFENesin 100 mg/5 ml LIQ unit dose cup PO PRN (20:51)
[2023-05-24 06:55] LABS: Activated Partial Thrombo Time 38.3 seconds (26.0-38.0); INR 3.66 (0.83-1.13)
[2023-05-24 06:58] LABS: Calcium 8.7 mg/dL (8.6-10.3); Creatinine, Serum 1.28 mg/dL (0.67-1.17); Magnesium 2.2 mg/dL (1.9-2.7); eGFR CKD-EPI 68.2 (>60)
[2023-05-24] MEDS: Cefepime 2 GM in Dextrose 2 GM/50 ML BAG IV SCH ×2 (07:42→15:41)
[2023-05-24] MEDS ORDERED: DOXYcycline 100 MG in NS 0.9% 250 ml 250 ML IVPB SCH (08:00)
[2023-05-24] MEDS: Albuterol/Ipratropium NEB.SOL (2.5/0.5 MG) 3 ML NEB.SOLN INH SCH ×3 (08:03→19:43)
[2023-05-24] MEDS: Budesonide NEB 0.25 MG/2 ML NEB.SOLN INH SCH ×2 (08:03→19:43)
[2023-05-24 08:19] LABS: Hematocrit 35.3 % (38-53); Hemoglobin 12.1 g/dL (13.2-16.3); Mean Corpuscular Hemoglobin 35.6 pg (27-33); Mean Corpuscular Hgb Conc 34.2 g/dL (31-36); Mean Corpuscular Volume 104.1 fL (80-97); Mean Platelet Volume 9.1 fL (7.5-11.2); Platelet Count 173 10^3/uL (150-450); Red Blood Count 3.39 10^6/uL (4.06-5.63); Red Cell Distribution Width 15.2 % (12-17); White Blood Count 9.8 10^3/uL (3.6-10.2)
[2023-05-24 08:21] LABS: Macrocytosis 1+
[2023-05-24 08:22] LABS: ABS Eosinophils 0.5 10^3/uL (0.0-0.5); ABS Lymphocytes 0.5 10^3/uL (1.0-4.8); ABS Monocytes 0.8 10^3/uL (0.0-1.1); ABS Neutrophils 7.9 10^3/uL (1.5-7.6); Eosinophil % 4.8 %; Lymphocyte % 5.5 %
[2023-05-24] MEDS: Nystatin SUSPENSION 100,000 UNITS/ML UDC PO SCH ×4 (09:04→21:04)
[2023-05-24] MEDS ORDERED: Bumetanide IV 0.25 MG/ML 4 ml VIAL (1 mg) IV SLOW PU ONE (09:04)
[2023-05-24] MEDS: Nystatin TOP POWDER 15 GM BTL TOPICAL SCH ×3 (09:05→21:04)
[2023-05-24] MEDS ORDERED: Vancomycin Trough Check NOTE FOLLOW UP ONE (10:30)
[2023-05-24] MEDS ORDERED: Warfarin - No Order Today **NOTE FOLLOW UP ONE (17:00)
[2023-05-24] MEDS: Warfarin DAILY REMINDER **NOTE FOLLOW UP SCH (18:32)
[2023-05-24] MEDS: Warfarin per PHARMACY **NOTE FOLLOW UP SCH (18:32)
[2023-05-25] MEDS: Cefepime 2 GM in Dextrose 2 GM/50 ML BAG IV SCH ×4 (00:07→23:13)
[2023-05-25 06:36] LABS: Activated Partial Thrombo Time 37.8 seconds (26.0-38.0); INR 3.71 (0.83-1.13)
[2023-05-25 06:45] LABS: Calcium 9.2 mg/dL (8.6-10.3); Creatinine, Serum 1.2 mg/dL (0.67-1.17); Magnesium 2.2 mg/dL (1.9-2.7); Potassium 3.6 mmol/L (3.5-5.0); eGFR CKD-EPI 73.7 (>60)
[2023-05-25] MEDS ORDERED: Potassium Chlor 20 meq TAB.ER PO ONE (07:01)
[2023-05-25 07:02] LABS: ABS Basophils 0.1 10^3/uL (0.0-0.1); ABS Eosinophils 0.5 10^3/uL (0.0-0.5); ABS Lymphocytes 0.7 10^3/uL (1.0-4.8); ABS Monocytes 0.7 10^3/uL (0.0-1.1); ABS Neutrophils 6.9 10^3/uL (1.5-7.6); ABS Nucleated RBC 0.01 10^3/ul; Eosinophil % 6.1 %; Hematocrit 38.3 % (38-53); Hemoglobin 13.2 g/dL (13.2-16.3); Lymphocyte % 7.7 %; Mean Corpuscular Hemoglobin 35.8 pg (27-33); Mean Corpuscular Hgb Conc 34.6 g/dL (31-36); Mean Corpuscular Volume 103.5 fL (80-97); Mean Platelet Volume 8.6 fL (7.5-11.2); Nucleated Red Blood Cells % 0.1 /100 WBC (0.0-0.4); Platelet Count 195 10^3/uL (150-450); White Blood Count 8.9 10^3/uL (3.6-10.2)
[2023-05-25] MEDS: Albuterol/Ipratropium NEB.SOL (2.5/0.5 MG) 3 ML NEB.SOLN INH SCH ×3 (07:46→19:28)
[2023-05-25] MEDS: Budesonide NEB 0.25 MG/2 ML NEB.SOLN INH SCH ×2 (07:47→19:28)
[2023-05-25] MEDS ORDERED: Bumetanide IV 0.25 MG/ML 4 ml VIAL (1 mg) IV SLOW PU ONE (10:05)
[2023-05-25] MEDS: Nystatin TOP POWDER 15 GM BTL TOPICAL SCH ×4 (10:45→21:44)
[2023-05-25] MEDS: Nystatin SUSPENSION 100,000 UNITS/ML UDC PO SCH ×4 (10:52→21:44)
[2023-05-25] MEDS ORDERED: Warfarin - No Order Today **NOTE FOLLOW UP ONE (17:00)
[2023-05-25 19:46] LABS: Adenovirus Undetected (Undetected); Bordetella parapertussis Undetected (Undetected); Bordetella pertussis Undetected (Undetected); Chlamydophila pneumoniae Undetected (Undetected); Coronavirus 229E Undetected (Undetected); Coronavirus HKU1 Undetected (Undetected); Coronavirus NL63 Undetected (Undetected); Coronavirus OC43 Undetected (Undetected); Human Metapneumovirus Undetected (Undetected); Human Rhinovirus/Enterovirus Undetected (Undetected); Influenza A Undetected (Undetected); Influenza B Undetected (Undetected); Mycoplasmoides pneumoniae Undetected (Undetected); Parainfluenza Virus 1 Undetected (Undetected); Parainfluenza Virus 2 Undetected (Undetected); Parainfluenza Virus 3 Undetected (Undetected); Parainfluenza Virus 4 Undetected (Undetected); Respiratory Syncytial Virus Undetected (Undetected); Specimen Source NASOPHARYNGEAL SWAB
[2023-05-25] MEDS: Warfarin DAILY REMINDER **NOTE FOLLOW UP SCH (21:47)
[2023-05-25] MEDS: Warfarin per PHARMACY **NOTE FOLLOW UP SCH (21:48)
[2023-05-26 05:43] LABS: Hematocrit 37.7 % (38-53); Hemoglobin 12.9 g/dL (13.2-16.3); Mean Corpuscular Hemoglobin 35.3 pg (27-33); Mean Corpuscular Hgb Conc 34.1 g/dL (31-36); Mean Corpuscular Volume 103.4 fL (80-97); Mean Platelet Volume 8.3 fL (7.5-11.2); Platelet Count 183 10^3/uL (150-450); Red Blood Count 3.64 10^6/uL (4.06-5.63); Red Cell Distribution Width 15.1 % (12-17); White Blood Count 7.5 10^3/uL (3.6-10.2)
[2023-05-26 05:47] LABS: INR 2.99 (0.83-1.13)
[2023-05-26 05:58] LABS: Calcium 8.9 mg/dL (8.6-10.3); Creatinine, Serum 1.38 mg/dL (0.67-1.17); Magnesium 2.1 mg/dL (1.9-2.7); Potassium 3.8 mmol/L (3.5-5.0); eGFR CKD-EPI 62.3 (>60)
[2023-05-26] MEDS: Budesonide NEB 0.25 MG/2 ML NEB.SOLN INH SCH ×2 (06:50→20:38)
[2023-05-26] MEDS: Albuterol/Ipratropium NEB.SOL (2.5/0.5 MG) 3 ML NEB.SOLN INH SCH ×2 (06:50→20:37)
[2023-05-26] MEDS: Cefepime 2 GM in Dextrose 2 GM/50 ML BAG IV SCH (08:40)
[2023-05-26 08:41] LABS: ABS Basophils 0.1 10^3/uL (0.0-0.1); ABS Eosinophils 0.4 10^3/uL (0.0-0.5); ABS Lymphocytes 0.7 10^3/uL (1.0-4.8); ABS Monocytes 0.7 10^3/uL (0.0-1.1); ABS Neutrophils 5.6 10^3/uL (1.5-7.6); ABS Nucleated RBC 0.01 10^3/ul; Eosinophil % 5.5 %; Nucleated Red Blood Cells % 0.1 /100 WBC (0.0-0.4)
[2023-05-26] MEDS: Nystatin SUSPENSION 100,000 UNITS/ML UDC PO SCH (08:43)
[2023-05-26] MEDS: Nystatin TOP POWDER 15 GM BTL TOPICAL SCH ×4 (08:49→21:10)
[2023-05-26] MEDS ORDERED: Bumetanide IV 0.25 MG/ML 4 ml VIAL (1 mg) IV SLOW PU ONE ×3 (10:31→18:45)
[2023-05-26] MEDS: Warfarin DAILY REMINDER **NOTE FOLLOW UP SCH (18:18)
[2023-05-26] MEDS: Warfarin per PHARMACY **NOTE FOLLOW UP SCH (19:05)
[2023-05-27 06:40] LABS: Hematocrit 38.5 % (38-53); Hemoglobin 13.3 g/dL (13.2-16.3); Mean Corpuscular Hemoglobin 35.6 pg (27-33); Mean Corpuscular Hgb Conc 34.6 g/dL (31-36); Mean Corpuscular Volume 102.9 fL (80-97); Mean Platelet Volume 8.2 fL (7.5-11.2); Platelet Count 216 10^3/uL (150-450); Red Blood Count 3.74 10^6/uL (4.06-5.63); Red Cell Distribution Width 15.4 % (12-17); White Blood Count 7.7 10^3/uL (3.6-10.2)
[2023-05-27 06:44] LABS: INR 2.24 (0.83-1.13)
[2023-05-27 06:52] LABS: Calcium 9.4 mg/dL (8.6-10.3); Creatinine, Serum 1.17 mg/dL (0.67-1.17); Magnesium 2.4 mg/dL (1.9-2.7); eGFR CKD-EPI 75.9 (>60)
[2023-05-27 08:57] LABS: Macrocytosis 1+
[2023-05-27 08:58] LABS: ABS Basophils 0.1 10^3/uL (0.0-0.1); ABS Eosinophils 0.5 10^3/uL (0.0-0.5); ABS Lymphocytes 0.8 10^3/uL (1.0-4.8); ABS Monocytes 0.6 10^3/uL (0.0-1.1); ABS Neutrophils 5.9 10^3/uL (1.5-7.6); ABS Nucleated RBC 0.01 10^3/ul; Lymphocyte % 9.8 %; Nucleated Red Blood Cells % 0.1 /100 WBC (0.0-0.4)
[2023-05-27] MEDS: Albuterol/Ipratropium NEB.SOL (2.5/0.5 MG) 3 ML NEB.SOLN INH SCH (09:03)
[2023-05-27] MEDS: Budesonide NEB 0.25 MG/2 ML NEB.SOLN INH SCH (09:03)
[2023-05-27] MEDS: Nystatin TOP POWDER 15 GM BTL TOPICAL SCH (10:15)
[2023-05-27 10:50] VITALS: BP 92/59
== END 2023-05-27 12:50 | DRG 189 ==
LOC: EDHOLD 15:02 → ED 15:02 → SUATTDRO 18:24 → EDHOLD 21:01 → MEDTELE 22:04 → SUATTDRO 05-17 08:00
PROVIDERS: ADMIT Internal Medicine; ATTEND Internal Medicine

== ENCOUNTER 2023-08-22 12:51 | Inpatient (IN) ==
[2023-08-22] MEDS ORDERED: Albuterol/Ipratropium NEB.SOL (2.5/0.5 MG) 3 ML NEB.SOLN INH ONE ×2 (12:57→16:07)
[2023-08-22 13:13] LABS: ABS Lymphocytes 0.5 10^3/uL (1.0-4.8); ABS Monocytes 0.7 10^3/uL (0.0-1.1); Eosinophil % 0.1 %; Hematocrit 38.8 % (38-53); Hemoglobin 13.1 g/dL (13.2-16.3); Lymphocyte % 8.3 %; Mean Corpuscular Hemoglobin 34.5 pg (27-33); Mean Corpuscular Hgb Conc 33.8 g/dL (31-36); Mean Corpuscular Volume 101.9 fL (80-97); Mean Platelet Volume 8.3 fL (7.5-11.2); Nucleated Red Blood Cells % 0.1 %/100WBC (0.0-0.8); Platelet Count 122 10^3/uL (150-450); Red Blood Count 3.81 10^6/uL (4.06-5.63); Red Cell Distribution Width 16.6 % (12-17); White Blood Count 6.2 10^3/uL (3.6-10.2)
[2023-08-22 13:22] LABS: Activated Partial Thrombo Time 39.2 seconds (26.0-38.0); INR 2.04 (0.83-1.13)
[2023-08-22 13:31] LABS: Albumin 3.7 g/dL (3.2-5.2); Albumin/Globulin Ratio 0.9 (1-3); C Reactive Protein 34.5 mg/L (<8.01); Calcium 8.6 mg/dL (8.6-10.3); Creatinine, Serum 1.85 mg/dL (0.67-1.17); Globulin 4.3 g/dL (2-4); Potassium 4.5 mmol/L (3.5-5.0); Total Bilirubin 1.1 mg/dL (0.2-1.0); eGFR CKD-EPI 43.6 (>60)
[2023-08-22 13:32] LABS: Venous Bicarbonate HCO3 26.5 mmol/L (24-28)
[2023-08-22] MEDS ORDERED: Lactated Ringers 1000 ml BAG 1,000 ML IV ONE ×2 (13:38→13:54)
[2023-08-22] MEDS ORDERED: Iodixanol (CONTRAST) 320 MG/ML 100 ML SDV IV ONE ×2 (13:46→15:04)
[2023-08-22] MEDS ORDERED: cefTRIAXone 1 gm/50 mL D5W 1 GM/50 ML BAG IV ONE (14:40)
[2023-08-22 14:58] LABS: High Sensitivity Troponin 1 Hr 93 pg/mL (<20)
[2023-08-22] MEDS ORDERED: methylPREDNISolone SOD SUCC 125 mg 2 ML VIAL IV ONE (16:07)
[2023-08-22] MEDS ORDERED: Albuterol/Ipratropium NEB.SOL (2.5/0.5 MG) 3 ML NEB.SOLN INH PRN ×2 (18:08→19:59)
[2023-08-22] MEDS ORDERED: Azithromycin 500 mg/250 ml NS 500 MG/250 ML BAG IVPB ONE (18:11)
[2023-08-22] MEDS ORDERED: Albuterol 2.5mg/3 ml (0.083%) NEB.SOLN INH PRN (18:12)
[2023-08-22] MEDS: Cefepime 2 GM in Dextrose 2 GM/50 ML BAG IV SCH (19:42)
[2023-08-22 19:49] LABS: Mean Corpuscular Hemoglobin 34.1 pg (27-33); Mean Corpuscular Hgb Conc 33.3 g/dL (31-36); Mean Corpuscular Volume 102.4 fL (80-97); Mean Platelet Volume 8.7 fL (7.5-11.2); Platelet Count 122 10^3/uL (150-450); Red Blood Count 3.81 10^6/uL (4.06-5.63); Red Cell Distribution Width 16.3 % (12-17); White Blood Count 4.7 10^3/uL (3.6-10.2)
[2023-08-22 20:07] LABS: Calcium 7.5 mg/dL (8.6-10.3); Creatinine, Serum 1.44 mg/dL (0.67-1.17); Magnesium 2.1 mg/dL (1.9-2.7); Phosphorus 3.8 mg/dL (2.5-5.0); Potassium 4.2 mmol/L (3.5-5.0); eGFR CKD-EPI 58.8 (>60)
[2023-08-22] MEDS: Albuterol/Ipratropium NEB.SOL (2.5/0.5 MG) 3 ML NEB.SOLN INH SCH (22:08)
[2023-08-22 22:34] LABS: Urine Appearance Clear; Urine Bilirubin Negative (Negative); Urine Blood Negative (Negative); Urine Color Yellow; Urine Glucose 3+(>=500 mg/dL) (Negative); Urine Ketones Negative (Negative); Urine Nitrite Negative (Negative); Urine Protein Negative (Negative); Urine Specific Gravity 1.027 (1.002-1.030); Urine Urobilinogen Negative (Negative)
[2023-08-22] MEDS: methylPREDNISolone SOD SUCC 40 mg/ml 1 ml VIAL IV SCH (23:14)
[2023-08-23] MEDS: Albuterol/Ipratropium NEB.SOL (2.5/0.5 MG) 3 ML NEB.SOLN INH SCH ×4 (02:37→19:54)
[2023-08-23] MEDS: Cefepime 2 GM in Dextrose 2 GM/50 ML BAG IV SCH ×2 (03:39→11:32)
[2023-08-23 04:44] LABS: Hematocrit 38.7 % (38-53); Hemoglobin 13.2 g/dL (13.2-16.3); Mean Corpuscular Volume 102.9 fL (80-97); Mean Platelet Volume 9.2 fL (7.5-11.2); Platelet Count 133 10^3/uL (150-450); Red Blood Count 3.76 10^6/uL (4.06-5.63); Red Cell Distribution Width 16.7 % (12-17); White Blood Count 4.6 10^3/uL (3.6-10.2)
[2023-08-23 04:49] LABS: INR 2.23 (0.83-1.13)
[2023-08-23 04:58] LABS: Calcium 8.5 mg/dL (8.6-10.3); Creatinine, Serum 1.68 mg/dL (0.67-1.17); Potassium 4.7 mmol/L (3.5-5.0); eGFR CKD-EPI 48.9 (>60)
[2023-08-23] MEDS: methylPREDNISolone SOD SUCC 40 mg/ml 1 ml VIAL IV SCH ×3 (07:28→22:50)
[2023-08-23] MEDS ORDERED: Furosemide 40 mg/4 ml IV VIAL IV ONE (11:03)
[2023-08-23] MEDS ORDERED: Norepinephrine 4 MG/250mL D5W 4,000 MCG/250 ML BAG IV ONE (14:12)
[2023-08-23] MEDS ORDERED: Norepinephrine 4 MG/250mL D5W 4,000 MCG/250 ML BAG IV SCH (16:00)
[2023-08-23] MEDS: Warfarin DAILY REMINDER **NOTE FOLLOW UP SCH (17:09)
[2023-08-23] MEDS: Warfarin per PHARMACY **NOTE FOLLOW UP SCH (17:09)
[2023-08-23 17:56] LABS: Ferritin 217.4 ng/mL (24-336)
[2023-08-23] MEDS: Nystatin TOP POWDER 15 GM BTL TOPICAL SCH (21:30)
[2023-08-24] MEDS ORDERED: Cefepime 2 GM in Dextrose 2 GM/50 ML BAG IV SCH
[2023-08-24] MEDS: Albuterol/Ipratropium NEB.SOL (2.5/0.5 MG) 3 ML NEB.SOLN INH SCH ×2 (01:04→07:42)
[2023-08-24 04:44] LABS: ABS Lymphocytes 0.5 10^3/uL (1.0-4.8); ABS Monocytes 0.4 10^3/uL (0.0-1.1); ABS Neutrophils 9.4 10^3/uL (1.5-7.6); ABS Nucleated RBC 0.01 10^3/ul; Hematocrit 40.2 % (38-53); Hemoglobin 13.6 g/dL (13.2-16.3); Lymphocyte % 4.9 %; Mean Corpuscular Hemoglobin 34.6 pg (27-33); Mean Corpuscular Hgb Conc 33.8 g/dL (31-36); Mean Corpuscular Volume 102.4 fL (80-97); Mean Platelet Volume 8.9 fL (7.5-11.2); Nucleated Red Blood Cells % 0.1 %/100WBC (0.0-0.8); Platelet Count 147 10^3/uL (150-450); Red Blood Count 3.93 10^6/uL (4.06-5.63); Red Cell Distribution Width 16.5 % (12-17); White Blood Count 10.3 10^3/uL (3.6-10.2)
[2023-08-24 05:01] LABS: Calcium 8.8 mg/dL (8.6-10.3); Creatinine, Serum 1.47 mg/dL (0.67-1.17); Magnesium 2.6 mg/dL (1.9-2.7); Potassium 4.4 mmol/L (3.5-5.0); eGFR CKD-EPI 57.4 (>60)
[2023-08-24 05:39] LABS: INR 5.27 (0.83-1.13)
[2023-08-24] MEDS: Levothyroxine 100 MCG/5 ML VIAL IV SCH (06:00)
[2023-08-24] MEDS: methylPREDNISolone SOD SUCC 40 mg/ml 1 ml VIAL IV SCH ×3 (06:00→22:00)
[2023-08-24] MEDS ORDERED: Sulfur Hexaflouride MICROSPHR 25 MG VIAL ONE (08:25)
[2023-08-24] MEDS ORDERED: cefTRIAXone 1 gm/50 mL D5W 1 GM/50 ML BAG IV SCH (10:00)
[2023-08-24] MEDS: Nystatin TOP POWDER 15 GM BTL TOPICAL SCH ×2 (10:27→21:23)
[2023-08-24] MEDS ORDERED: Furosemide 40 mg/4 ml IV VIAL IV SLOW PU ONE (11:46)
[2023-08-24] MEDS: Albuterol/Ipratropium NEB.SOL (2.5/0.5 MG) 3 ML NEB.SOLN INH PRN (13:55)
[2023-08-24] MEDS ORDERED: Warfarin - No Order Today **NOTE FOLLOW UP ONE (17:00)
[2023-08-24] MEDS: guaiFENesin 100 mg/5 ml LIQ unit dose cup PO PRN (18:20)
[2023-08-24] MEDS: Warfarin DAILY REMINDER **NOTE FOLLOW UP SCH (19:14)
[2023-08-24] MEDS: Warfarin per PHARMACY **NOTE FOLLOW UP SCH (19:14)
[2023-08-25 05:03] LABS: ABS Lymphocytes 0.5 10^3/uL (1.0-4.8); ABS Monocytes 0.3 10^3/uL (0.0-1.1); ABS Neutrophils 10.6 10^3/uL (1.5-7.6); ABS Nucleated RBC 0.01 10^3/ul; Hematocrit 39.9 % (38-53); Hemoglobin 13.3 g/dL (13.2-16.3); Lymphocyte % 4.1 %; Mean Corpuscular Hgb Conc 33.3 g/dL (31-36); Mean Corpuscular Volume 102.1 fL (80-97); Nucleated Red Blood Cells % 0.1 %/100WBC (0.0-0.8); Platelet Count 149 10^3/uL (150-450); Red Blood Count 3.91 10^6/uL (4.06-5.63); Red Cell Distribution Width 16.1 % (12-17); White Blood Count 11.4 10^3/uL (3.6-10.2)
[2023-08-25 05:18] LABS: Calcium 8.6 mg/dL (8.6-10.3); Creatinine, Serum 1.28 mg/dL (0.67-1.17); Magnesium 2.6 mg/dL (1.9-2.7); Potassium 4.3 mmol/L (3.5-5.0); eGFR CKD-EPI 67.8 (>60)
[2023-08-25 05:19] LABS: INR 9.26 (0.83-1.13)
[2023-08-25] MEDS: Levothyroxine 100 MCG/5 ML VIAL IV SCH (05:58)
[2023-08-25] MEDS: methylPREDNISolone SOD SUCC 40 mg/ml 1 ml VIAL IV SCH ×2 (06:04→20:41)
[2023-08-25 06:27] LABS: INR 9.59 (0.83-1.13)
[2023-08-25] MEDS: Nystatin TOP POWDER 15 GM BTL TOPICAL SCH ×2 (11:34→20:42)
[2023-08-25] MEDS: guaiFENesin 100 mg/5 ml LIQ unit dose cup PO PRN (11:34)
[2023-08-25] MEDS: cefTRIAXone ADVAN VIAL 1 GM in NS 0.9% 50 ML 50 ML IV SCH (11:34)
[2023-08-25] MEDS: Albuterol/Ipratropium NEB.SOL (2.5/0.5 MG) 3 ML NEB.SOLN INH PRN (12:14)
[2023-08-25] MEDS ORDERED: Warfarin - No Order Today **NOTE FOLLOW UP ONE (17:00)
[2023-08-25] MEDS: Warfarin DAILY REMINDER **NOTE FOLLOW UP SCH (17:28)
[2023-08-25] MEDS: Warfarin per PHARMACY **NOTE FOLLOW UP SCH (17:28)
[2023-08-26 04:57] LABS: ABS Lymphocytes 0.5 10^3/uL (1.0-4.8); ABS Monocytes 0.4 10^3/uL (0.0-1.1); ABS Neutrophils 10.1 10^3/uL (1.5-7.6); ABS Nucleated RBC 0.01 10^3/ul; Hematocrit 40.3 % (38-53); Hemoglobin 13.4 g/dL (13.2-16.3); Lymphocyte % 4.9 %; Mean Corpuscular Hemoglobin 34.2 pg (27-33); Mean Corpuscular Hgb Conc 33.3 g/dL (31-36); Mean Corpuscular Volume 102.8 fL (80-97); Mean Platelet Volume 8.7 fL (7.5-11.2); Nucleated Red Blood Cells % 0.1 %/100WBC (0.0-0.8); Platelet Count 157 10^3/uL (150-450); Red Blood Count 3.92 10^6/uL (4.06-5.63); Red Cell Distribution Width 16.5 % (12-17); White Blood Count 11.1 10^3/uL (3.6-10.2)
[2023-08-26 05:12] LABS: Calcium 8.4 mg/dL (8.6-10.3); Creatinine, Serum 1.13 mg/dL (0.67-1.17); Magnesium 2.4 mg/dL (1.9-2.7); Potassium 3.8 mmol/L (3.5-5.0); eGFR CKD-EPI 78.7 (>60)
[2023-08-26 05:28] LABS: INR 10.11 (0.83-1.13)
[2023-08-26] MEDS: Albuterol/Ipratropium NEB.SOL (2.5/0.5 MG) 3 ML NEB.SOLN INH PRN (07:57)
[2023-08-26] MEDS: methylPREDNISolone SOD SUCC 40 mg/ml 1 ml VIAL IV SCH ×2 (09:02→20:47)
[2023-08-26] MEDS: Nystatin TOP POWDER 15 GM BTL TOPICAL SCH ×2 (09:02→20:53)
[2023-08-26] MEDS: cefTRIAXone ADVAN VIAL 1 GM in NS 0.9% 50 ML 50 ML IV SCH (10:52)
[2023-08-26] MEDS ORDERED: Warfarin - No Order Today **NOTE FOLLOW UP ONE (17:00)
[2023-08-26] MEDS: Warfarin per PHARMACY **NOTE FOLLOW UP SCH (20:48)
[2023-08-26] MEDS: Warfarin DAILY REMINDER **NOTE FOLLOW UP SCH (20:48)
[2023-08-26] MEDS: guaiFENesin 100 mg/5 ml LIQ unit dose cup PO PRN (21:25)
[2023-08-27 04:16] LABS: ABS Lymphocytes 0.5 10^3/uL (1.0-4.8); ABS Monocytes 0.3 10^3/uL (0.0-1.1); ABS Neutrophils 9.2 10^3/uL (1.5-7.6); ABS Nucleated RBC 0.01 10^3/ul; Hematocrit 41.7 % (38-53); Hemoglobin 13.9 g/dL (13.2-16.3); Lymphocyte % 5.2 %; Mean Corpuscular Hemoglobin 34.2 pg (27-33); Mean Corpuscular Hgb Conc 33.4 g/dL (31-36); Mean Corpuscular Volume 102.4 fL (80-97); Nucleated Red Blood Cells % 0.1 %/100WBC (0.0-0.8); Platelet Count 174 10^3/uL (150-450); Red Blood Count 4.07 10^6/uL (4.06-5.63); Red Cell Distribution Width 16.7 % (12-17); White Blood Count 10.1 10^3/uL (3.6-10.2)
[2023-08-27 04:27] LABS: INR 8.6 (0.83-1.13)
[2023-08-27 04:31] LABS: Creatinine, Serum 1.08 mg/dL (0.67-1.17); Magnesium 2.3 mg/dL (1.9-2.7); Potassium 3.7 mmol/L (3.5-5.0); eGFR CKD-EPI 83.1 (>60)
[2023-08-27] MEDS ORDERED: Phytonadione Oral Solution 5 MG/25 ML UDC PO ONE (09:41)
[2023-08-27] MEDS: methylPREDNISolone SOD SUCC 40 mg/ml 1 ml VIAL IV SCH (10:11)
[2023-08-27] MEDS: Nystatin TOP POWDER 15 GM BTL TOPICAL SCH ×2 (10:12→23:06)
[2023-08-27] MEDS ORDERED: Ferric Gluconate IV 250 MG in NS 0.9% 250 ml 200 ML IVPB ONE (12:46)
[2023-08-27] MEDS: Ferric Gluconate IV 250 MG in NS 0.9% 250 ml 200 ML IVPB SCH (13:55)
[2023-08-27] MEDS ORDERED: Warfarin - No Order Today **NOTE FOLLOW UP ONE (17:00)
[2023-08-27] MEDS: Warfarin DAILY REMINDER **NOTE FOLLOW UP SCH (18:22)
[2023-08-27] MEDS: Warfarin per PHARMACY **NOTE FOLLOW UP SCH (18:23)
[2023-08-27] MEDS: guaiFENesin 100 mg/5 ml LIQ unit dose cup PO PRN (21:48)
[2023-08-28 07:13] LABS: ABS Basophils 0.1 10^3/uL (0.0-0.1); ABS Monocytes 0.8 10^3/uL (0.0-1.1); ABS Neutrophils 9.3 10^3/uL (1.5-7.6); ABS Nucleated RBC 0.02 10^3/ul; Eosinophil % 0.2 %; Hematocrit 43.9 % (38-53); Hemoglobin 14.5 g/dL (13.2-16.3); Mean Corpuscular Hemoglobin 33.8 pg (27-33); Mean Corpuscular Hgb Conc 33.1 g/dL (31-36); Mean Corpuscular Volume 102.2 fL (80-97); Mean Platelet Volume 8.9 fL (7.5-11.2); Nucleated Red Blood Cells % 0.2 %/100WBC (0.0-0.8); Platelet Count 189 10^3/uL (150-450); Red Cell Distribution Width 16.4 % (12-17); White Blood Count 11.1 10^3/uL (3.6-10.2)
[2023-08-28 07:22] LABS: INR 1.93 (0.83-1.13)
[2023-08-28 07:30] LABS: Albumin 3.2 g/dL (3.2-5.2); Albumin/Globulin Ratio 0.8 (1-3); Calcium 8.1 mg/dL (8.6-10.3); Creatinine, Serum 0.9 mg/dL (0.67-1.17); Globulin 3.8 g/dL (2-4); Magnesium 2.3 mg/dL (1.9-2.7); Potassium 3.9 mmol/L (3.5-5.0); eGFR CKD-EPI 103.4 (>60)
[2023-08-28] MEDS: Nystatin TOP POWDER 15 GM BTL TOPICAL SCH ×2 (10:31→20:24)
[2023-08-28] MEDS: guaiFENesin 100 mg/5 ml LIQ unit dose cup PO PRN ×2 (11:01→20:20)
[2023-08-28] MEDS: Ferric Gluconate IV 250 MG in NS 0.9% 250 ml 200 ML IVPB SCH (11:01)
[2023-08-28] MEDS: Albuterol/Ipratropium NEB.SOL (2.5/0.5 MG) 3 ML NEB.SOLN INH PRN (13:54)
[2023-08-28] MEDS: Warfarin DAILY REMINDER **NOTE FOLLOW UP SCH (20:14)
[2023-08-28] MEDS: Warfarin per PHARMACY **NOTE FOLLOW UP SCH (20:14)
[2023-08-28] MEDS ORDERED: Enoxaparin 80 MG/0.8 ML SYR SUBCUT ONE (21:00)
[2023-08-29] MEDS: Albuterol/Ipratropium NEB.SOL (2.5/0.5 MG) 3 ML NEB.SOLN INH PRN (02:09)
[2023-08-29] MEDS: guaiFENesin 100 mg/5 ml LIQ unit dose cup PO PRN ×2 (06:17→21:55)
[2023-08-29 06:39] LABS: INR 1.47 (0.83-1.13)
[2023-08-29 09:12] LABS: ABS Eosinophils 0.1 10^3/uL (0.0-0.5); ABS Lymphocytes 0.9 10^3/uL (1.0-4.8); ABS Monocytes 0.5 10^3/uL (0.0-1.1); ABS Neutrophils 5.8 10^3/uL (1.5-7.6); ABS Nucleated RBC 0.03 10^3/ul; Eosinophil % 1.6 %; Hematocrit 47.3 % (38-53); Lymphocyte % 12.2 %; Mean Corpuscular Hemoglobin 34.6 pg (27-33); Mean Corpuscular Hgb Conc 33.8 g/dL (31-36); Mean Corpuscular Volume 102.1 fL (80-97); Mean Platelet Volume 8.8 fL (7.5-11.2); Nucleated Red Blood Cells % 0.4 %/100WBC (0.0-0.8); Platelet Count 196 10^3/uL (150-450); Red Blood Count 4.64 10^6/uL (4.06-5.63); Red Cell Distribution Width 16.3 % (12-17); White Blood Count 7.3 10^3/uL (3.6-10.2)
[2023-08-29 09:18] LABS: Calcium 8.1 mg/dL (8.6-10.3); Creatinine, Serum 0.82 mg/dL (0.67-1.17); Magnesium 2.3 mg/dL (1.9-2.7); eGFR CKD-EPI 106.4 (>60)
[2023-08-29] MEDS: Ferric Gluconate IV 250 MG in NS 0.9% 250 ml 200 ML IVPB SCH (10:32)
[2023-08-29] MEDS: Nystatin TOP POWDER 15 GM BTL TOPICAL SCH ×2 (10:33→19:36)
[2023-08-29] MEDS: Enoxaparin 80 MG/0.8 ML SYR SUBCUT SCH ×2 (12:29→22:00)
[2023-08-29] MEDS: Warfarin DAILY REMINDER **NOTE FOLLOW UP SCH (19:16)
[2023-08-29] MEDS: Warfarin per PHARMACY **NOTE FOLLOW UP SCH (19:16)
[2023-08-30] MEDS ORDERED: Lactated Ringers 1000 ml BAG 250 ML IV ONE (02:34)
[2023-08-30] MEDS: guaiFENesin 100 mg/5 ml LIQ unit dose cup PO PRN ×2 (06:04→21:01)
[2023-08-30 06:46] LABS: INR 2.07 (0.83-1.13)
[2023-08-30] MEDS: Ferric Gluconate IV 250 MG in NS 0.9% 250 ml 200 ML IVPB SCH (08:55)
[2023-08-30] MEDS: Albuterol/Ipratropium NEB.SOL (2.5/0.5 MG) 3 ML NEB.SOLN INH SCH ×3 (11:28→20:09)
[2023-08-30] MEDS: Nystatin TOP POWDER 15 GM BTL TOPICAL SCH ×2 (12:04→21:02)
[2023-08-30] MEDS: Enoxaparin 80 MG/0.8 ML SYR SUBCUT SCH ×2 (12:13→22:42)
[2023-08-30] MEDS: Warfarin DAILY REMINDER **NOTE FOLLOW UP SCH (20:56)
[2023-08-31] MEDS: guaiFENesin 100 mg/5 ml LIQ unit dose cup PO PRN ×2 (05:43→10:58)
[2023-08-31 06:19] VITALS: BP 103/71
[2023-08-31 07:25] LABS: INR 3.14 (0.83-1.13)
[2023-08-31] MEDS: Albuterol/Ipratropium NEB.SOL (2.5/0.5 MG) 3 ML NEB.SOLN INH SCH ×2 (07:27→11:17)
[2023-08-31 07:30] LABS: Calcium 8.5 mg/dL (8.6-10.3); Creatinine, Serum 1.03 mg/dL (0.67-1.17); Potassium 4.2 mmol/L (3.5-5.0); eGFR CKD-EPI 87.9 (>60)
[2023-08-31] MEDS: Nystatin TOP POWDER 15 GM BTL TOPICAL SCH (08:49)
== END 2023-08-31 13:15 | DRG 189 ==
LOC: ED 12:51 → EDHOLD 18:01 → SUATTDRO 18:01 → ICU 21:42 → MEDTELE 08-27 20:08
PROVIDERS: ADMIT Student in an Organized Health Care Education/Training Program; ATTEND Internal Medicine

== ENCOUNTER 2024-06-15 10:56 | Inpatient (IN) ==
[2024-06-15 14:37] LABS: ABS Basophils 0.1 10^3/uL (0.0-0.1); ABS Lymphocytes 0.6 10^3/uL (1.0-4.8); ABS Neutrophils 16.3 10^3/uL (1.5-7.6); Hematocrit 48.3 % (38-53); Hemoglobin 15.9 g/dL (13.2-16.3); Lymphocyte % 3.1 %; Mean Corpuscular Hemoglobin 33.6 pg (27-33); Mean Corpuscular Volume 101.8 fL (80-97); Mean Platelet Volume 8.4 fL (7.5-11.2); Platelet Count 164 10^3/uL (150-450); Red Blood Count 4.75 10^6/uL (4.06-5.63); Red Cell Distribution Width 15.6 % (12-17)
[2024-06-15 14:58] LABS: INR 5.89 (0.85-1.14)
[2024-06-15 15:12] LABS: Albumin 3.4 g/dL (3.2-5.2); C Reactive Protein 72.68 mg/L (<8.01); Calcium 8.1 mg/dL (8.6-10.3); Creatinine, Serum 1.28 mg/dL (0.67-1.17); Globulin 3.3 g/dL (2-4); Potassium 3.9 mmol/L (3.5-5.0); Total Bilirubin 1.4 mg/dL (0.2-1.0); Total Protein 6.7 g/dL (6.4-8.9); eGFR CKD-EPI 67.3 (>60)
[2024-06-15] MEDS: cefTRIAXone 1 gm/50 mL D5W 1 GM/50 ML BAG IV ONE (15:16)
[2024-06-15] MEDS: Azithromycin 500 mg/250 ml NS 500 MG/250 ML BAG IVPB ONE (15:40)
[2024-06-15] MEDS: Albuterol/Ipratropium NEB.SOL (2.5/0.5 MG) 3 ML NEB.SOLN INH ONE ×2 (17:19→20:13)
[2024-06-15] MEDS ORDERED: Carbamide Peroxide 6.5% OTIC 15 ML BTL BOTH EARS PRN (18:02)
[2024-06-15] MEDS ORDERED: BACITRACIN ZINC TOPICAL PRN (18:02)
[2024-06-15] MEDS ORDERED: Albuterol HFA INHALER 8 gm MDI INH PRN (18:02)
[2024-06-15] MEDS ORDERED: Remdesivir 100 mg Vial 200 MG in NS 0.9% 250 ml 210 ML IV ONE (21:00)
[2024-06-15] MEDS: methylPREDNISolone SOD SUCC 40 mg/ml 1 ml VIAL IV SCH (21:16)
[2024-06-15] MEDS: Metronidazole (TOPICAL)(NF) 45 GM TUBE TOPICAL SCH (21:40)
[2024-06-15] MEDS: Mometasone/Formoter 100/5 MDI INH SCH (21:53)
[2024-06-16] MEDS: Albuterol/Ipratropium NEB.SOL (2.5/0.5 MG) 3 ML NEB.SOLN INH PRN (00:52)
[2024-06-16] MEDS: guaiFENesin 100 mg/5 ml LIQ unit dose cup PO PRN (01:27)
[2024-06-16 07:54] LABS: Hematocrit 44.8 % (38-53); Hemoglobin 15.1 g/dL (13.2-16.3); Mean Corpuscular Hemoglobin 33.9 pg (27-33); Mean Corpuscular Hgb Conc 33.6 g/dL (31-36); Mean Platelet Volume 8.9 fL (7.5-11.2); Platelet Count 170 10^3/uL (150-450); Red Blood Count 4.44 10^6/uL (4.06-5.63); Red Cell Distribution Width 15.8 % (12-17); White Blood Count 20.4 10^3/uL (3.6-10.2)
[2024-06-16 07:59] LABS: INR 3.78 (0.85-1.14)
[2024-06-16 08:49] LABS: ALT 20 U/L (7-52); Albumin 3.2 g/dL (3.2-5.2); Albumin/Globulin Ratio 0.9 (1-3); Alkaline Phosphatase 124 U/L (35-149); Anion Gap 9 mmol/L (2-16); Blood Urea Nitrogen 38 mg/dL (6-24); CO2 Carbon Dioxide 32 mmol/L (22-32); Chloride 96 mmol/L (101-111); Creatinine, Serum 1.41 mg/dL (0.67-1.17); Globulin 3.5 g/dL (2-4); Glucose 148 mg/dL (70-100); Sodium 137 mmol/L (135-145); Total Bilirubin 1.2 mg/dL (0.2-1.0); Total Protein 6.7 g/dL (6.4-8.9)
[2024-06-16] MEDS: Miconazole 2% Top Powder BTL TOPICAL SCH (09:30)
[2024-06-16] MEDS ORDERED: Warfarin per PHARMACY **NOTE FOLLOW UP SCH (11:00)
[2024-06-16] MEDS ORDERED: Albuterol/Ipratropium NEB.SOL (2.5/0.5 MG) 3 ML NEB.SOLN INH PRN (11:54)
[2024-06-16] MEDS ORDERED: Azithromycin 500 mg/250 ml NS 500 MG/250 ML BAG IVPB SCH ×2 (12:00→15:30)
[2024-06-16] MEDS: cefTRIAXone 1 gm/50 mL D5W 1 GM/50 ML BAG IV SCH ×2 (14:30→22:18)
[2024-06-16] MEDS: Lactated Ringers 1000 ml BAG 1,000 ML IV SCH (14:34)
[2024-06-16] MEDS ORDERED: cefTRIAXone 1 gm/50 mL D5W 1 GM/50 ML BAG IV SCH (15:00)
[2024-06-16] MEDS ORDERED: Warfarin - No Order Today **NOTE FOLLOW UP ONE (17:00)
[2024-06-16] MEDS ORDERED: Remdesivir 100 mg Vial 100 MG in NS 0.9% 250 ml 230 ML IV SCH (21:00)
[2024-06-17 06:25] LABS: Hematocrit 43.4 % (38-53); Hemoglobin 14.1 g/dL (13.2-16.3); Mean Corpuscular Hemoglobin 33.2 pg (27-33); Mean Corpuscular Hgb Conc 32.5 g/dL (31-36); Mean Corpuscular Volume 102.3 fL (80-97); Mean Platelet Volume 8.9 fL (7.5-11.2); Platelet Count 183 10^3/uL (150-450); Red Blood Count 4.24 10^6/uL (4.06-5.63); Red Cell Distribution Width 15.5 % (12-17); White Blood Count 19.6 10^3/uL (3.6-10.2)
[2024-06-17 06:31] LABS: INR 3.86 (0.85-1.14)
[2024-06-17 06:44] LABS: Calcium 8.3 mg/dL (8.6-10.3); Creatinine, Serum 1.17 mg/dL (0.67-1.17); Potassium 3.8 mmol/L (3.5-5.0); Total Bilirubin 0.7 mg/dL (0.2-1.0)
[2024-06-17] MEDS ORDERED: POVIDONE TOPICAL SCH (09:00)
[2024-06-17] MEDS ORDERED: IODINE TOPICAL SCH (09:00)
[2024-06-17] MEDS: methylPREDNISolone SOD SUCC 40 mg/ml 1 ml VIAL IV SCH (09:44)
[2024-06-17] MEDS: cefTRIAXone 2 gm/50 mL D5W 2 GM/50 ML BAG IV SCH (10:44)
[2024-06-17] MEDS ORDERED: cefTRIAXone 1 gm/50 mL D5W 1 GM/50 ML BAG IV SCH (14:30)
[2024-06-17] MEDS: Warfarin - No Order Today **NOTE FOLLOW UP ONE (22:58)
[2024-06-18 06:18] LABS: ABS Basophils 0.1 10^3/uL (0.0-0.1); ABS Lymphocytes 0.4 10^3/uL (1.0-4.8); ABS Monocytes 0.4 10^3/uL (0.0-1.1); ABS Neutrophils 17.2 10^3/uL (1.5-7.6); Hematocrit 41.9 % (38-53); Lymphocyte % 2.2 %; Mean Corpuscular Hemoglobin 33.7 pg (27-33); Mean Corpuscular Hgb Conc 33.3 g/dL (31-36); Mean Corpuscular Volume 101.1 fL (80-97); Mean Platelet Volume 8.8 fL (7.5-11.2); Platelet Count 165 10^3/uL (150-450); Red Blood Count 4.14 10^6/uL (4.06-5.63); Red Cell Distribution Width 15.4 % (12-17)
[2024-06-18 06:22] LABS: INR 3.17 (0.85-1.14)
[2024-06-18 06:51] LABS: Calcium 8.2 mg/dL (8.6-10.3); Creatinine, Serum 0.99 mg/dL (0.67-1.17); Magnesium 2.3 mg/dL (1.9-2.7); Phosphorus 2.3 mg/dL (2.5-5.0); Potassium 4.3 mmol/L (3.5-5.0); Total Bilirubin 0.7 mg/dL (0.2-1.0); eGFR CKD-EPI 91.7 (>60)
[2024-06-18 10:51] LABS: Urine Appearance Clear; Urine Bilirubin Negative (Negative); Urine Blood Negative (Negative); Urine Color Light-Yellow; Urine Glucose 3+ (>=300 mg/dL) (Negative); Urine Ketones Negative (Negative); Urine Nitrite Negative (Negative); Urine Protein Trace (Negative); Urine Specific Gravity 1.023 (1.002-1.030); Urine Urobilinogen Negative (Negative); Urine pH 5.5 (5.0-8.0)
[2024-06-19 06:48] LABS: Calcium 8.1 mg/dL (8.6-10.3); Creatinine, Serum 0.96 mg/dL (0.67-1.17); Potassium 4.4 mmol/L (3.5-5.0); eGFR CKD-EPI 95.1 (>60)
[2024-06-19 06:53] LABS: INR 2.55 (0.85-1.14)
[2024-06-19] MEDS: Amoxicillin/Clavul 875/125 TAB (Augmentin 875 tab) PO SCH (10:16)
[2024-06-20 06:14] LABS: INR 2.47 (0.85-1.14)
[2024-06-20 10:59] VITALS: BP 98/68
[2024-06-20] MEDS ORDERED: Warfarin DAILY REMINDER **NOTE FOLLOW UP SCH (17:00)
== END 2024-06-20 14:00 | DRG 177 ==
LOC: ED 10:56 → EDHOLD 17:50 → SUATTDRO 17:50 → MEDTELE 06-16 13:58
PROVIDERS: ADMIT Internal Medicine; ATTEND Student in an Organized Health Care Education/Training Program